=== PATIENT | female | born 1995 | race Caucasian/White ===

== ENCOUNTER 2017-05-10 07:14 | Emergency (ER) | payer OTHER ==
[2017-05-10 07:19] VITALS: TEMP 98.8; BMI 25.8
[2017-05-10 08:02] LABS: URINE APPEARANCE CLOUDY; URINE BILIRUBIN NEGATIVE (NEGATIVE); URINE BLOOD NEGATIVE (NEGATIVE); URINE COLOR YELLOW; URINE GLUCOSE (UA) NEGATIVE (NEGATIVE); URINE KETONE NEGATIVE (NEGATIVE); URINE LEUK ESTERASE NEGATIVE (NEGATIVE); URINE NITRITE NEGATIVE (NEGATIVE); URINE PROTEIN NEGATIVE (NEGATIVE); URINE UROBILINOGEN NEGATIVE mg/dL (0.2-1.0)
--- NOTE | 2017-05-10 08:04 | PDOC ---
History of Present Illness - General History Source: Patient Exam Limitations: No Limitations - History of Present Illness Initial Comments: 05/10/17 08:34 The patient is a 22 year old female with a significant PMH of polysubstance abuse (clean for 1 year) and ovarian cysts who presents to the emergency department with abdominal pain beginning approximately yesterday night. The patient describes the abdominal pain as localized in the RLQ with no radiation. Patient reports laying down in her bed yesterday when the pain started, which got worse by the time she woke up. She notes associated nausea with her abdominal pain and reports a reduced appetite for the past week. Patient reports still having her appendix. The patient denies chest pain, shortness of breath, headache and dizziness. Denies fever, chills, nausea, vomit, diarrhea and constipation. Denies dysuria, frequency, urgency and hematuria. Allergies: NKDA Past surgical history: Tonsillectomy. Social history: Everyday smoker. Hx of polysubstance abuse (clean for 1 year). PCP: Dr. Bond <Lance Waldrop - Last Filed: 05/10/17 09:43> <Ava Jennings - Last Filed: 05/12/17 07:46> - General Chief Complaint: Pain Stated Complaint: ABD PAIN Time Seen by Provider: 05/10/17 07:41 Past History <Lance Waldrop - Last Filed: 05/10/17 09:43> - Past Medical History Other medical history: DENIES - Immunization History Immunization Up to Date: No - Suicide/Smoking/Psychosocial Hx Smoking History: Current every day smoker Have you smoked in the past 12 months: Yes Number of Cigarettes Smoked Daily: 20 Information on smoking cessation initiated: Yes 'Breaking Loose' booklet given: 05/10/17 Hx Alcohol Use: No Drug/Substance Use Hx: No Substance Use Type: None <Ava Jennings - Last Filed: 05/12/17 07:46> - Past Medical History Allergies/Adverse Reactions: Allergies Allergy/AdvReac Type Severity Reaction Status Date / Time No Known Allergies Allergy Verified 05/10/17 07:19 Home Medications: Ambulatory Orders Buprenorphine HCl/Naloxone HCl [Suboxone 4 mg-1 mg Sl Film] 1.5 each SL BID Citalopram Hydrobromide [Celexa -] 20 mg PO DAILY 05/10/17 Ondansetron [Zofran Odt -] 4 mg SL BID #14 od.tablet 05/10/17 Review of Systems - Review of Systems Able to Perform ROS?: Yes Comments:: 05/10/17 08:34 GENERAL/CONSTITUTIONAL: No fever or chills. No weakness. HEAD, EYES, EARS, NOSE AND THROAT: No change in vision. No ear pain or discharge. No sore throat. CARDIOVASCULAR: No chest pain or shortness of breath. RESPIRATORY: No cough, wheezing, or hemoptysis. GASTROINTESTINAL: (+) RLQ abdominal pain. (+) Nausea. No vomiting, diarrhea or constipation. GENITOURINARY: No dysuria, frequency, or change in urination. MUSCULOSKELETAL: No joint or muscle swelling or pain. No neck or back pain. SKIN: No rash NEUROLOGIC: No headache, vertigo, loss of consciousness, or change in strength/ sensation. ENDOCRINE: No increased thirst. No abnormal weight change. HEMATOLOGIC/LYMPHATIC: No anemia, easy bleeding, or history of blood clots. ALLERGIC/IMMUNOLOGIC: No hives or skin allergy. <Lance Waldrop - Last Filed: 05/10/17 09:43> *Physical Exam - Vital Signs Last Vital Signs Temp Pulse Resp BP Pulse Ox 98.8 F 84 18 136/76 100 05/10/17 07:16 05/10/17 07:16 05/10/17 07:16 05/10/17 07:16 05/10/17 07:16 - Physical Exam Comments: 05/10/17 09:43 GENERAL: (+) Appears uncomfortable. Awake, alert, and fully oriented. HEAD: No signs of trauma EYES: PERRLA, EOMI, sclera anicteric, conjunctiva clear ENT: Auricles normal inspection, hearing grossly normal, nares patent, oropharynx clear without exudates. Moist mucosa NECK: Normal ROM, supple, no lymphadenopathy, JVD, or masses LUNGS: Breath sounds equal, clear to auscultation bilaterally. No wheezes, and no crackles HEART: Regular rate and rhythm, normal S1 and S2, no murmurs, rubs or gallops ABDOMEN: (+) RLQ tenderness to palpation with guarding. Soft, normoactive bowel sounds. No rebound. No masses EXTREMITIES: Normal range of motion, no edema. No clubbing or cyanosis. No cords, erythema, or tenderness NEUROLOGICAL: Cranial nerves II through XII grossly intact. Normal speech, normal gait SKIN: Warm, Dry, normal turgor, no rashes or lesions noted. <Lance Waldrop - Last Filed: 05/10/17 09:43> - Vital Signs Last Vital Signs Temp Pulse Resp BP Pulse Ox 98.8 F 84 18 136/76 100 05/10/17 07:16 05/10/17 07:16 05/10/17 07:16 05/10/17 07:16 05/10/17 07:16 <Ava Jennings - Last Filed: 05/12/17 07:46> ED Treatment Course - LABORATORY CBC & Chemistry Diagram: 05/10/17 09:25 05/10/17 09:25 - ADDITIONAL ORDERS Additional order review: Laboratory Results 05/10/17 07:51 Urine Color Yellow Urine Appearance Cloudy Urine pH 6.0 Urine Protein Negative Urine Glucose (UA) Negative Urine Ketones Negative Urine Blood Negative Urine Nitrite Negative Urine Bilirubin Negative Urine Urobilinogen Negative Urine HCG, Qual Negative <Lance Waldrop - Last Filed: 05/10/17 09:43> - LABORATORY CBC & Chemistry Diagram: 05/10/17 09:25 05/10/17 09:25 <Ava Jennings - Last Filed: 05/12/17 07:46> Medical Decision Making - Medical Decision Making 05/10/17 10:[address] Yan at shift change. Awaiting labs, then will obtain CT a/ p to r/o appendicitis. <Ava Jennings - Last Filed: 05/12/17 07:46> *DC/Admit/Observation/Transfer - Attestations Scribe Attestion: 05/10/17 09:43 Documentation prepared by Lance Waldrop, acting as certified medical records coder for Ava Jennings MD. <Lance Waldrop - Last Filed: 05/10/17 09:43> <Ava Jennings - Last Filed: 05/12/17 07:46> Diagnosis at time of Disposition: Abdominal pain - Discharge Dispostion Disposition: HOME Condition at time of disposition: Stable - Prescriptions Prescriptions: Ondansetron [Zofran Odt -] 4 mg SL BID #14 od.tablet - Referrals Referrals: Geetha Navarro MD [Primary Care Provider] - - Patient Instructions Printed Discharge Instructions: DI for Abdominal Pain-Adult
[2017-05-10] MEDS ORDERED: SODIUM CHLORIDE 1,000 ML IV STA (09:08)
[2017-05-10] MEDS ORDERED: ACETAMINOPHEN 1000 MG/100 ML VIAL (NON FORMULARY) IVPB ONE (09:08)
[2017-05-10] MEDS ORDERED: ONDANSETRON 4 MG/2 ML VIAL IVPUSH ONE (09:08)
[2017-05-10] MEDS ORDERED: ONDANSETRON 4 MG/2 ML VIAL ONE ×2 (09:30→16:32)
[2017-05-10] MEDS ORDERED: ACETAMINOPHEN INJECTION 100 ML IVPB ONE (09:30)
[2017-05-10 09:40] LABS: BASOPHIL 0.2 % (0-2.0); EOSINOPHIL 1.3 % (0-4.5); MCH 30.1 pg (25.7-33.7); MCHC 33.4 g/dl (32.0-36.0); MEAN CELL VOLUME 90.1 fl (80-96); MEAN PLT VOLUME 10.1 fl (7.5-11.1); NEUTROPHILS 81.7 % (42.8-82.8); PLATELET COUNT 171 K/MM3 (134-434); RDW 12.9 % (11.6-15.6)
[2017-05-10 09:50] LABS: INR 1.02 (0.82-1.09); PROTHROMBIN TIME (PATIENT) 11.2 SEC (9.98-11.88)
[2017-05-10 10:32] LABS: ALBUMIN 3.5 g/dl (3.4-5.0); ANION GAP 7 (8-16); CALCIUM 8.9 mg/dL (8.5-10.1); CO2 28 mmol/L (21-32); GLUCOSE,RANDOM 93 mg/dL (74-106)
[2017-05-10 10:36] LABS: ALK PHOS 53 U/L (45-117); BILIRUBIN,TOTAL 0.4 mg/dL (0.2-1.0); CREATININE 0.7 mg/dL (0.55-1.02); SGOT/AST 73 U/L (15-37); SGPT/ALT 72 U/L (12-78); TOT PROT 6.8 g/dl (6.4-8.2)
[2017-05-10] MEDS ORDERED: morphine CARPU-JECT 4 MG/1 ML DISP.SYRIN IVPUSH ONE (11:23)
[2017-05-10] MEDS ORDERED: morphine CARPU-JECT 2 MG/1 ML DISP.SYRIN ONE (11:48)
--- NOTE | 2017-05-10 14:27 | PDOC ---
*Physical Exam - Vital Signs Last Vital Signs Temp Pulse Resp BP Pulse Ox 98.8 F 84 18 136/76 100 05/10/17 07:16 05/10/17 07:16 05/10/17 07:16 05/10/17 07:16 05/10/17 07:16 ED Treatment Course - LABORATORY CBC & Chemistry Diagram: 05/10/17 09:25 05/10/17 09:25 - ADDITIONAL ORDERS Additional order review: Laboratory Results 05/10/17 05/10/17 05/10/17 09:27 09:25 09:25 PT with INR 11.20 INR 1.02 Sodium 140 Potassium 4.4 Chloride 105 Carbon Dioxide 28 Anion Gap 7 L BUN 9 D Creatinine 0.7 D Creat Clearance w eGFR > 60 Random Glucose 93 Calcium 8.9 Total Bilirubin 0.4 D AST 73 H D ALT 72 D Alkaline Phosphatase 53 Total Protein 6.8 Albumin 3.5 Lipase 103 Urine Color Urine Appearance Urine pH Urine Protein Urine Glucose (UA) Urine Ketones Urine Blood Urine Nitrite Urine Bilirubin Urine Urobilinogen Urine HCG, Qual Blood Type A POSITIVE Antibody Screen Negative 05/10/17 07:51 PT with INR INR Sodium Potassium Chloride Carbon Dioxide Anion Gap BUN Creatinine Creat Clearance w eGFR Random Glucose Calcium Total Bilirubin AST ALT Alkaline Phosphatase Total Protein Albumin Lipase Urine Color Yellow Urine Appearance Cloudy Urine pH 6.0 Urine Protein Negative Urine Glucose (UA) Negative Urine Ketones Negative Urine Blood Negative Urine Nitrite Negative Urine Bilirubin Negative Urine Urobilinogen Negative Urine HCG, Qual Negative Blood Type Antibody Screen 05/10/17 09:25 RBC 4.34 MCV 90.1 MCHC 33.4 RDW 12.9 MPV 10.1 Neutrophils % 81.7 Lymphocytes % 11.4 Monocytes % 5.4 Eosinophils % 1.3 Basophils % 0.2 - RADIOLOGY Radiology Studies Ordered: Category Date Time Status ABDOMEN & PELVIS CT WITH CONTR [CT] Stat CT Scan 05/10/17 11:21 Ordered TRANSVAGINAL ULTRASOUND US [US] Stat Ultrasound 05/10/17 13:14 Ordered - Medications Given in the ED: ED Medications Discontinued Medications Generic Name Dose Route Start Last Admin Trade Name Freq PRN Reason Stop Dose Admin Acetaminophen 1,000 mg 05/10/17 09:08 05/10/17 09:38 Ofirmev Injection - IVPB 05/10/17 09:09 1,000 mg ONCE ONE Administration Sodium Chloride 1,000 mls @ 1,000 mls/hr 05/10/17 09:08 05/10/17 09:38 Normal Saline - IV 05/10/17 10:07 1,000 mls/hr ASDIR STA Administration Morphine Sulfate 2 mg 05/10/17 11:23 05/10/17 11:53 Morphine Injection - IVPUSH 05/10/17 11:24 2 mg ONCE ONE Administration Ondansetron HCl 4 mg 05/10/17 09:08 05/10/17 09:36 Zofran Injection IVPUSH 05/10/17 09:09 4 mg ONCE ONE Administration Medical Decision Making - Medical Decision Making 05/10/17 14:26 Patient signed out to me by Dr. Jennings. Briefly patient presents with periumbilical pain radiating to the right lower quadrant concerning for appendicitis. Repeat abdominal exam with mild periumbilical, RLQ and LLQ ttp, and no rebound, guarding or distention. Pt given morphine 2mg for pain control as IV tylenol only minimally helped. UA negative. Patient is still currently pending her CT abdomen and pelvis as well as her transvaginal ultrasound. *DC/Admit/Observation/Transfer Diagnosis at time of Disposition: Abdominal pain - Discharge Dispostion Disposition: HOME Condition at time of disposition: Stable - Prescriptions Prescriptions: Ondansetron [Zofran Odt -] 4 mg SL BID #14 od.tablet - Referrals Referrals: Geetha Navarro MD [Primary Care Provider] - - Patient Instructions Printed Discharge Instructions: DI for Abdominal Pain-Adult - Post Discharge Activity
[2017-05-10] MEDS ORDERED: ONDANSETRON 4 MG/2 ML VIAL IVPB ONE (16:13)
[2017-05-10] MEDS ORDERED: KETOROLAC TROMETHAMINE 30 MG/1 ML VIAL IVPUSH ONE (16:15)
[2017-05-10] MEDS ORDERED: KETOROLAC TROMETHAMINE 30 MG/1 ML VIAL ONE (16:32)
--- NOTE | 2017-05-10 16:43 | PDOC ---
*Physical Exam - Vital Signs Last Vital Signs Temp Pulse Resp BP Pulse Ox 98.8 F 84 18 136/76 100 05/10/17 07:16 05/10/17 07:16 05/10/17 07:16 05/10/17 07:16 05/10/17 07:16 - Physical Exam Comments: 05/10/17 16:41 Patient endorsed to me by Dr. Owens. Patient is a well-appearing 22-year-old female who presented with nonspecific lower abdominal pain. CBC shows leukocytosis of 14 with a normal differential. Urinalysis is within normal limit. CMP reveals minimally elevated AST. Transvaginal ultrasound showed no evidence of torsion, no evidence of ovarian cyst or any other abnormality was noted. CT of abdomen and pelvis was performed and showed no evidence of acute appendicitis or any other intra-abdominal pathology. On reevaluation, patient has minimal left lower quadrant tenderness only. Patient complaining of mild nausea but Patient is able tolerate by mouth. We'll administer Toradol and Zofran. Will discharge with NSAIDs and Zofran as an outpatient with PMD follow- up. ED Treatment Course - LABORATORY CBC & Chemistry Diagram: 05/10/17 09:25 05/10/17 09:25 - ADDITIONAL ORDERS Additional order review: Laboratory Results 05/10/17 05/10/17 05/10/17 09:27 09:25 09:25 PT with INR 11.20 INR 1.02 Sodium 140 Potassium 4.4 Chloride 105 Carbon Dioxide 28 Anion Gap 7 L BUN 9 D Creatinine 0.7 D Creat Clearance w eGFR > 60 Random Glucose 93 Calcium 8.9 Total Bilirubin 0.4 D AST 73 H D ALT 72 D Alkaline Phosphatase 53 Total Protein 6.8 Albumin 3.5 Lipase 103 Urine Color Urine Appearance Urine pH Urine Protein Urine Glucose (UA) Urine Ketones Urine Blood Urine Nitrite Urine Bilirubin Urine Urobilinogen Urine HCG, Qual Blood Type A POSITIVE Antibody Screen Negative 05/10/17 07:51 PT with INR INR Sodium Potassium Chloride Carbon Dioxide Anion Gap BUN Creatinine Creat Clearance w eGFR Random Glucose Calcium Total Bilirubin AST ALT Alkaline Phosphatase Total Protein Albumin Lipase Urine Color Yellow Urine Appearance Cloudy Urine pH 6.0 Urine Protein Negative Urine Glucose (UA) Negative Urine Ketones Negative Urine Blood Negative Urine Nitrite Negative Urine Bilirubin Negative Urine Urobilinogen Negative Urine HCG, Qual Negative Blood Type Antibody Screen 05/10/17 09:25 RBC 4.34 MCV 90.1 MCHC 33.4 RDW 12.9 MPV 10.1 Neutrophils % 81.7 Lymphocytes % 11.4 Monocytes % 5.4 Eosinophils % 1.3 Basophils % 0.2 - Medications Given in the ED: ED Medications Discontinued Medications Generic Name Dose Route Start Last Admin Trade Name Rupa PRN Reason Stop Dose Admin Acetaminophen 1,000 mg 05/10/17 09:08 05/10/17 09:38 Ofirmev Injection - IVPB 05/10/17 09:09 1,000 mg ONCE ONE Administration Sodium Chloride 1,000 mls @ 1,000 mls/hr 05/10/17 09:08 05/10/17 09:38 Normal Saline - IV 05/10/17 10:07 1,000 mls/hr ASDIR STA Administration Ketorolac Tromethamine 30 mg 05/10/17 16:15 05/10/17 16:38 Toradol Injection - IVPUSH 05/10/17 16:16 30 mg ONCE ONE Administration Morphine Sulfate 2 mg 05/10/17 11:23 05/10/17 11:53 Morphine Injection - IVPUSH 05/10/17 11:24 2 mg ONCE ONE Administration Ondansetron HCl 4 mg 05/10/17 09:08 05/10/17 09:36 Zofran Injection IVPUSH 05/10/17 09:09 4 mg ONCE ONE Administration Ondansetron HCl 8 mg 05/10/17 16:13 05/10/17 16:40 Zofran Injection IVPB 05/10/17 16:14 8 mg ONCE ONE Administration *DC/Admit/Observation/Transfer Diagnosis at time of Disposition: Abdominal pain Qualifiers: Abdominal location: left lower quadrant Qualified Code(s): R10.32 - Left lower quadrant pain - Discharge Dispostion Disposition: HOME Condition at time of disposition: Stable - Referrals Referrals: Geetha Navarro MD [Primary Care Provider] - - Patient Instructions Printed Discharge Instructions: DI for Abdominal Pain-Adult - Post Discharge Activity
[2017-05-10 17:02] VITALS: BP 126/70; PULSE 80
== END 2017-05-10 17:02 | disposition home or self-care (01) ==
LOC: JER 07:14
PROC: 3E033NZ Introduction of Analgesics, Hypnotics, Sedatives into Peripheral Vein, Percutaneous Approach (ICD-10-PCS; principal; 2017-05-10)
PROC: 3E033GC Introduction of Other Therapeutic Substance into Peripheral Vein, Percutaneous Approach (ICD-10-PCS; 2017-05-10)
PROC: 3E0333Z Introduction of Anti-inflammatory into Peripheral Vein, Percutaneous Approach (ICD-10-PCS; 2017-05-10)
PROC: 3E033GC Introduction of Other Therapeutic Substance into Peripheral Vein, Percutaneous Approach (ICD-10-PCS; 2017-05-10)
PROC: 3E033NZ Introduction of Analgesics, Hypnotics, Sedatives into Peripheral Vein, Percutaneous Approach (ICD-10-PCS; 2017-05-10)
DX: R10.32 Left lower quadrant pain (principal); F17.210 Nicotine dependence, cigarettes, uncomplicated
CPT/HCPCS: 36415; 74177-TC; 76830-TC; 80053; 81003; 83690; 84703; 85025; 85610; 86850; 86900; 86901; 87086; 99284-25

== ENCOUNTER 2018-01-02 05:27 | Emergency (ER) | payer OTHER ==
--- NOTE | 2018-01-02 05:57 | PDOC ---
History of Present Illness <Kari Yan - Last Filed: 01/02/18 06:27> - History of Present Illness Initial Comments: 01/02/18 06:26 Ms. Sultana is a 22 yo female w/ pmh of polysubstance abuse who presents via ambulance after friend called EMS as patient was no longer responsive. Her friend then administered IN Narcan. Ms. Sultana was responsive on arrival to the ER and admits to using approximately 15 bags of heroin last night. She reports she had been clean until recently but has started using again. She is not interested in detox at this time. The patient denies chest pain, shortness of breath, headache and dizziness. Denies fever, chills, nausea, vomit, diarrhea and constipation. Denies dysuria, frequency, urgency and hematuria. Allergies: NKDA <Thomas Prais - Last Filed: 01/02/18 06:56> - General Chief Complaint: Overdose Stated Complaint: OVERDOSE Time Seen by Provider: 01/02/18 05:56 Past History <Kari Yan - Last Filed: 01/02/18 06:27> - Immunization History Immunization Up to Date: No - Suicide/Smoking/Psychosocial Hx Smoking History: Current every day smoker Have you smoked in the past 12 months: Yes Number of Cigarettes Smoked Daily: 20 'Breaking Loose' booklet given: 05/10/17 Hx Alcohol Use: No Drug/Substance Use Hx: No Substance Use Type: None <Thomas Paris - Last Filed: 01/02/18 06:56> - Past Medical History Allergies/Adverse Reactions: Allergies Allergy/AdvReac Type Severity Reaction Status Date / Time No Known Allergies Allergy Verified 01/02/18 06:12 Home Medications: Ambulatory Orders Buprenorphine HCl/Naloxone HCl [Suboxone 4 mg-1 mg Sl Film] 1.5 each SL BID Citalopram Hydrobromide [Celexa -] 20 mg PO DAILY 05/10/17 Ondansetron [Zofran Odt -] 4 mg SL BID #14 od.tablet 05/10/17 Review of Systems - Review of Systems Comments:: 01/02/18 06:32 GENERAL/CONSTITUTIONAL: No fever or chills. No weakness. HEAD, EYES, EARS, NOSE AND THROAT: No change in vision. No ear pain or discharge. No sore throat. CARDIOVASCULAR: No chest pain or shortness of breath RESPIRATORY: No cough, wheezing, or hemoptysis. GASTROINTESTINAL: No nausea, vomiting, diarrhea or constipation. GENITOURINARY: No dysuria, frequency, or change in urination. MUSCULOSKELETAL: No joint or muscle swelling or pain. No neck or back pain. SKIN: No rash NEUROLOGIC: No headache, vertigo, loss of consciousness, or change in strength/ sensation. ENDOCRINE: No increased thirst. No abnormal weight change HEMATOLOGIC/LYMPHATIC: No anemia, easy bleeding, or history of blood clots. ALLERGIC/IMMUNOLOGIC: No hives or skin allergy. <Thomas Paris - Last Filed: 01/02/18 06:56> *Physical Exam - Vital Signs Last Vital Signs Temp Pulse Resp BP Pulse Ox 98.2 F 106 H 19 116/71 100 01/02/18 05:55 01/02/18 05:55 01/02/18 05:55 01/02/18 05:55 01/02/18 05:55 <Kari Yan - Last Filed: 01/02/18 06:27> - Physical Exam Comments: 01/02/18 06:32 GENERAL: Awake, alert, and fully oriented, in no acute distress HEAD: No signs of trauma, normocephalic, atraumatic EYES: PERRLA, EOMI, sclera anicteric, conjunctiva clear ENT: Auricles normal inspection, hearing grossly normal, nares patent, oropharynx clear without exudates. Moist mucosa NECK: Normal ROM, supple, no lymphadenopathy, JVD, or masses LUNGS: No distress, speaks full sentences, clear to auscultation bilaterally HEART: Regular rate and rhythm, normal S1 and S2, no murmurs, rubs or gallops, peripheral pulses normal and equal bilaterally. ABDOMEN: Soft, nontender, normoactive bowel sounds. No guarding, no rebound. No masses EXTREMITIES: Normal inspection, Normal range of motion, no edema. No clubbing or cyanosis. NEUROLOGICAL: Cranial nerves II through XII grossly intact. Normal speech, normal gait, no focal sensorimotor deficits SKIN: Warm, Dry, normal turgor, no rashes or lesions noted. <Thomas Paris - Last Filed: 05/22/18 06:56> Moderate Sedation - Procedure Monitoring Vital Signs: Vital Signs Temp Pulse Resp BP Pulse Ox 98.2 F 106 H 19 116/71 100 01/02/18 05:55 01/02/18 05:55 01/02/18 05:55 01/02/18 05:55 01/02/18 05:55 <Kari Yan - Last Filed: 01/02/18 06:27> Medical Decision Making - Medical Decision Making 01/02/18 06:32 Ms. Sultana is a 22 yo female who presents to ER with acute heroin intoxication / narcan rescue. Patient currently alert and responsive. No focal findings at this time. Will observe in ER for relapse. 01/02/18 06:56 Patient signed out to Dr. Adam for further evaluation. <Thomas Paris - Last Filed: 01/02/18 06:56> *DC/Admit/Observation/Transfer <Kari Yan - Last Filed: 01/02/18 06:27> <Thomas Paris - Last Filed: 01/02/18 06:56> Diagnosis at time of Disposition: Accidental heroin overdose - Discharge Dispostion Condition at time of disposition: Guarded - Referrals Referrals: ON STAFF,NOT [Primary Care Provider] - - Patient Instructions - Post Discharge Activity
[2018-01-02 06:11] VITALS: TEMP 98.2; BMI 25.8
--- NOTE | 2018-01-02 06:24 | PDOC ---
Attending Attestation - Resident Resident Name: Thomas Paris - ED Attending Attestation I have performed the following: I have examined & evaluated the patient, The case was reviewed & discussed with the resident, I agree w/resident's findings & plan, Exceptions are as noted - HPI HPI: 01/02/18 06:13 22-year-old female with a history of heroin abuse presents emergency Department after heroin overdose. Per EMS, the patient was snorting heroin with a friend when the friend noted that she began to breathe heavily and her respiratory rate slowed down. The patient's friend also reports that the patient turned blue and thus she decided to give her intranasal Narcan and the patient became more alert within 10-15 seconds. EMS was called and transported the patient here to the emergency department. Patient currently tearful and upset that she has relapsed again. Pt states she used 15 bags of heroin overnight, but used 5 bags in rapid succession which she usually doesn't do just prior to overdose. Denies any fevers, chills, chest pain, shortness of breath, abdominal pain, nausea, vomiting, diarrhea, lower extremity edema. Denies other drug use. Declines HIV test. - Physicial Exam PE: 01/02/18 06:16 GENERAL: Awake, alert, and fully oriented, in no acute distress HEAD: No signs of trauma EYES: PERRLA, EOMI, sclera anicteric, conjunctiva clear ENT: Auricles normal inspection, hearing grossly normal, nares patent, oropharynx clear without exudates. Moist mucosa NECK: Normal ROM, supple, no lymphadenopathy, JVD, or masses LUNGS: Breath sounds equal, clear to auscultation bilaterally. No wheezes, and no crackles. RR 14 HEART: Tachy but regular, normal S1 and S2, no murmurs, rubs or gallops ABDOMEN: Soft, nontender, normoactive bowel sounds. No guarding, no rebound. No masses EXTREMITIES: Normal range of motion, no edema. No clubbing or cyanosis. No cords, erythema, or tenderness NEUROLOGICAL: Normal speech, cranial nerves intact, negative pronator drift, 5/ 5 strength in all 4 extremities, normal sensation to light touch in all 4 extremities, normal cerebellar exam, normal gait, normal reflexes and tone SKIN: Warm, Dry, normal turgor, no rashes or lesions noted. - Medical Decision Making 01/02/18 06:27 22-year-old female presents to the emergency Department with a heroin overdose status post Narcan. Pt used 15 bags total last night, but used the last 5 bags in close succession which she has never done before. At this time her RR is 12- 16, mildly tachycardic at 106. Given half-life of Narcan is shorter than heroin , will observe the patient on monitor for respiratory depression and reassess. 01/02/18 06:51 RR remains btwn 11-16 while monitored, pt awake and texting on phone. 01/02/18 07:00 Pt signed out to Dr. Delong for further management and dispo.
--- NOTE | 2018-01-02 07:26 | PDOC ---
*Physical Exam - Vital Signs Last Vital Signs Temp Pulse Resp BP Pulse Ox 98.2 F 106 H 19 116/71 100 01/02/18 05:55 01/02/18 05:55 01/02/18 05:55 01/02/18 05:55 01/02/18 05:55 - Physical Exam Comments: 01/02/18 07:26 GENERAL: Awake, alert, and fully oriented, in no acute distress HEAD: No signs of trauma, normocephalic, atraumatic EYES: PERRLA, EOMI, sclera anicteric, conjunctiva clear ENT: Hearing grossly normal, nares patent, oropharynx clear without exudates. Moist mucosa NECK: Normal ROM, supple, no lymphadenopathy, JVD, or masses LUNGS: No distress, speaks full sentences, clear to auscultation bilaterally HEART: Regular rate and rhythm, normal S1 and S2, no murmurs, rubs or gallops, peripheral pulses normal and equal bilaterally. ABDOMEN: Soft, nontender, normoactive bowel sounds. No guarding, no rebound. No masses EXTREMITIES : Normal inspection, Normal range of motion, no edema. No clubbing or cyanosis. NEUROLOGICAL: Cranial nerves II through XII grossly intact. Normal speech, normal gait, no focal sensorimotor deficits SKIN: Warm, Dry, normal turgor, no rashes or lesions noted Medical Decision Making - Medical Decision Making 01/02/18 07:23 22 yo F with h/o of polysubstance abuse BIBA after found unrepsonsive, and received IM Narcan for suspected Heroin OD. Responsive in ED and admits to using approximately 15 bags of heroin last night. Received signout from Dr. Paris. Patient respiratory rate dropped to 9 in ED. Will continue to monitor respiratory status. ED Course: 01/02/18 09:23 Patient resp rate stable . Patient seen ambulating rojo without difficulty. Stable for d/c with return precautions. Advised to f/u with PMD. *DC/Admit/Observation/Transfer Diagnosis at time of Disposition: Accidental heroin overdose Qualifiers: Encounter type: initial encounter Qualified Code(s): T40.1X1A - Poisoning by heroin, accidental (unintentional), initial encounter - Discharge Dispostion Condition at time of disposition: Guarded - Referrals Referrals: ON STAFF,NOT [Primary Care Provider] - - Patient Instructions Printed Discharge Instructions: DI for Drug Overdose in Adults Additional Instructions: Please return to the emergency department with any new or worsening symptoms or concerns. Please follow up with your primary care physician within 72 hours. - Post Discharge Activity - Attestations Physician Attestion: 01/02/18 08:38 I attest to the information provided in this note.
[2018-01-02 09:42] VITALS: BP 122/88; PULSE 91
== END 2018-01-02 09:42 | disposition home or self-care (01) ==
LOC: SUPCPDRO 05:27 → JER 05:27
DX: T40.0X1A Poisoning by opium, accidental (unintentional), initial encounter (principal); T40.1X1A Poisoning by heroin, accidental (unintentional), initial encounter; Y92.018 Other place in single-family (private) house as the place of occurrence of the external cause
CPT/HCPCS: 99282-25

== ENCOUNTER 2018-05-13 00:52 | Emergency (ER) | payer OTHER ==
[2018-05-13 00:56] VITALS: BP 119/74; PULSE 107; TEMP 98.3; BMI 25.8
--- NOTE | 2018-05-13 01:39 | PDOC ---
History of Present Illness - General Chief Complaint: Head/Neck problem Stated Complaint: HEAD INJURY Time Seen by Provider: 05/13/18 01:15 History Source: Patient Exam Limitations: No Limitations - History of Present Illness Initial Comments: 05/13/18 03:13 Best Contact: PCP: Beth/Manish Pmhx:0 Pshx: Age 5/adenoidectomy Allergies: NKDA FH:- Social Hx: Cigarettes/ 1 pk/d/5 years Alcohol/ social Drugs/ IVDA; heroin 23-year-old female presents to the emergency department with her boyfriend after a near syncopal episode shortly after using IVDA heroin this evening. Patient states she was not eating off from taking her 2 bags of her when, she remember striking her head against the wall. Patient denies headache, dizziness , lightheadedness. Patient states whenever she takes heroin, she starts nodding off but denied it was a medical syncope. Patient denies fever, chills, nausea/ vomiting, neck pains, back pains, chest pain, shortness of breath, abdominal pains, flank pains, bladder or bowel dysfunction, urinary symptoms, Vikas numbness or tingling sensation. Patient states she has no complaints since arrival to the emergency department. Past History - Past Medical History Allergies/Adverse Reactions: Allergies Allergy/AdvReac Type Severity Reaction Status Date / Time No Known Allergies Allergy Verified 05/13/18 00:56 Home Medications: Ambulatory Orders Sertraline HCl [Zoloft -] 50 mg PO DAILY 05/13/18 COPD: No - Immunization History Immunization Up to Date: No - Suicide/Smoking/Psychosocial Hx Smoking History: Current every day smoker Have you smoked in the past 12 months: Yes Number of Cigarettes Smoked Daily: 20 Information on smoking cessation initiated: Yes 'Breaking Loose' booklet given: 05/10/17 Hx Alcohol Use: No Drug/Substance Use Hx: Yes Substance Use Type: None Review of Systems - Review of Systems Able to Perform ROS?: Yes Comments:: 05/13/18 03:19 CONSTITUTIONAL: Absent: fever, chills, diaphoresis, generalized weakness, malaise, loss of appetite HEENT: Absent: rhinorrhea, nasal congestion, throat pain, throat swelling, difficulty swallowing, mouth swelling, ear pain, eye pain, visual Changes CARDIOVASCULAR: Absent: chest pain, loss of consciousness, palpitations, irregular heart rate, peripheral edema RESPIRATORY: Absent: cough, shortness of breath, dyspnea with exertion, orthopnea, wheezing, stridor, hemoptysis GASTROINTESTINAL: Absent: abdominal pain, abdominal distension, nausea, vomiting, diarrhea, constipation, melena, hematochezia GENITOURINARY: Absent: dysuria, frequency, urgency, hesitancy, hematuria, flank pain, genital pain MUSCULOSKELETAL: Absent: myalgia, arthralgia, joint swelling SKIN: Absent: rash, itching, pallor HEMATOLOGIC/IMMUNOLOGIC: Absent: easy bleeding, easy bruising, lymphadenopathy, frequent infections ENDOCRINE: Absent: unexplained weight gain, unexplained weight loss, heat intolerance, cold intolerance NEUROLOGIC: "No headache but I hit my head on the wall" Absent: headache, focal weakness or paresthesias, dizziness, unsteady gait, seizure, mental status changes, bladder or bowel incontinence PSYCHIATRIC: Absent: anxiety, depression, suicidal or homicidal ideation, hallucinations. Is the patient limited [place] proficient: No *Physical Exam - Vital Signs Last Vital Signs Temp Pulse Resp BP Pulse Ox 98.3 F 107 H 18 119/74 99 05/13/18 00:53 05/13/18 00:53 05/13/18 00:53 05/13/18 00:53 05/13/18 00:53 - Physical Exam Comments: 05/13/18 03:20 GENERAL: Well developed, well nourished. Awake and alert. No acute distress. HEENT: Normocephalic, atraumatic. PERRLA, EOMI. No conjunctival pallor. Sclera are non- icteric. Moist mucous membranes. Oropharynx is clear. NECK: Supple. Full ROM. No JVD. Carotid pulses 2+ and symmetric, without bruits. No thyromegaly. No lymphadenopathy. CARDIOVASCULAR: Regular rate and rhythm. No murmurs, rubs, or gallops. Distal pulses are 2+ and symmetric. PULMONARY: No evidence of respiratory distress. Lungs clear to auscultation bilaterally. No wheezing, rales or rhonchi. ABDOMINAL: Soft. Non-tender. Non-distended. No rebound or guarding. No organomegaly. Normoactive bowel sounds. MUSCULOSKELETAL Normal range of motion at all joints. No bony deformities or tenderness. No CVA tenderness. EXTREMITIES: No cyanosis. No clubbing. No edema. No calf tenderness. SKIN: Warm and dry. Normal capillary refill. No rashes. No jaundice. NEUROLOGICAL: Alert, awake, appropriate. Cranial nerves 2-12 intact. No deficits to light touch and temperature in face, upper extremities and lower extremities. No motor deficits in the in face, upper extremities and lower extremities. Normoreflexic in the upper and lower extremities. Normal speech. Toes are down- going bilaterally. Gait is normal without ataxia. PSYCHIATRIC: Cooperative. Good eye contact. Appropriate mood and affect. ED Treatment Course - RADIOLOGY Radiograph Interpretation: 05/13/18 03:22 CT head w/o contrast=neg CT c spine=neg *DC/Admit/Observation/Transfer Diagnosis at time of Disposition: Heroin dependence Closed head injury Qualifiers: Encounter type: initial encounter Qualified Code(s): S09.90XA - Unspecified injury of head, initial encounter - Discharge Dispostion Disposition: HOME Condition at time of disposition: Stable Decision to Admit order: No - Referrals Referrals: Geetha Navarro MD [Primary Care Provider] - - Patient Instructions Printed Discharge Instructions: DI for Closed Head Injury Additional Instructions: You had a CAT scan of your head and neck this evening which shows no bleed to the head and no fracture to the neck. Avoid recreational drugs Follow-up with your physician or the one listed on your discharge Return back to the emergency department severe headache, dizziness, lightheadedness or any concerns - Post Discharge Activity
== END 2018-05-13 03:25 | disposition home or self-care (01) ==
LOC: JER 00:52
DX: F11.20 Opioid dependence, uncomplicated (principal); S09.90XA Unspecified injury of head, initial encounter
CPT/HCPCS: 70450-TC; 72125-TC; 84703; 99282-25

== ENCOUNTER 2018-07-20 22:30 | Inpatient (IN) | payer OTHER ==
--- NOTE | 2018-07-20 23:45 | PDOC ---
History of Present Illness <Chris Polanco - Last Filed: 07/21/18 01:59> - General History Source: Patient Exam Limitations: No Limitations - History of Present Illness Initial Comments: 07/21/18 00:07 The patient is a 23-year-old female past medical history significant for heroin abuse presents to the emergency department with redness to the right arm. The patient presents with 1 day of progressively worsening redness to the right arm , s/p IV drug use. The patient reports she noticed swelling to the arm last night, thats been worsening. The patient reports her last drug use was earlier today. Denies licking the needle prior to injection. Denies armpit pain, SOB, chest pain, abdominal pain, fever, chills. Denies prior similar pain. The patient reports she was clean for a year, and recently Relapsed. LMP: 3 months ago, baseline irregular. Allergies: NKDA Social history: Tobacco use reported. Heroin use reported. Surgical history: Tonsillectomy. PCP: Dr. Navarro. <Maru Fowler - Last Filed: 07/21/18 02:14> - General Chief Complaint: Redness To Affected Area Stated Complaint: RT SWOLLEN ARM Time Seen by Provider: 07/20/18 23:24 Past History - Past Medical History COPD: No - Immunization History Immunization Up to Date: No - Suicide/Smoking/Psychosocial Hx Smoking History: Current every day smoker Have you smoked in the past 12 months: Yes Number of Cigarettes Smoked Daily: 20 Information on smoking cessation initiated: No 'Breaking Loose' booklet given: 05/10/17 Hx Alcohol Use: No Drug/Substance Use Hx: Yes (HEROIN) Substance Use Type: None <Chris Polanco - Last Filed: 07/21/18 01:59> <Maru Fowler - Last Filed: 07/21/18 02:14> - Past Medical History Allergies/Adverse Reactions: Allergies Allergy/AdvReac Type Severity Reaction Status Date / Time No Known Allergies Allergy Verified 07/20/18 23:16 Home Medications: Ambulatory Orders Sertraline HCl [Zoloft -] 50 mg PO DAILY 05/13/18 Review of Systems - Review of Systems Able to Perform ROS?: Yes Comments:: 07/21/18 00:14 CONSTITUTIONAL: No fever, no chills, no fatigue EYES: No visual changes ENT: No ear pain, no sore throat CARDIOVASCULAR: No chest pain, no palpitations RESPIRATORY: No cough, no SOB GI: No abdominal pain, no nausea, no vomiting, no constipation, no diarrhea GENITOURINARY: No dysuria, no frequency, no hematuria MUSKULOSKELETAL: No backpain, no joint pain, no myalgias SKIN: +redness to the right arm. No rash NEURO: No headache. <Maru Fowler - Last Filed: 07/21/18 02:14> *Physical Exam - Vital Signs Last Vital Signs Temp Pulse Resp BP Pulse Ox 102 F H 120 H 20 101/60 96 07/20/18 23:16 07/20/18 23:16 07/20/18 23:16 07/20/18 23:16 07/20/18 23:16 <Chris Polanco - Last Filed: 07/21/18 01:59> - Vital Signs Last Vital Signs Temp Pulse Resp BP Pulse Ox 102 F H 120 H 20 101/60 96 07/20/18 23:16 07/20/18 23:16 07/20/18 23:16 07/20/18 23:16 07/20/18 23:16 - Physical Exam Comments: 07/21/18 01:21 CONSTITUTIONAL: +Febril. Well-appearing; well-nourished; in no apparent distress HEAD: Normocephalic; atraumatic EYES: PERRL; EOM intact ENMT: External appears normal; normal oropharynx NECK: Supple; non-tender; no cervical lymphadenopathy CARD: +Tachycardia. Normal S1, S2; no murmurs, rubs, or gallops RESP: Normal chest excursion with respiration; breath sounds clear and equal bilaterally; no wheezes, rhonchi, or rales ABD: Soft, non-distended; non-tender; no palpable organomegaly, no palpable hernias EXT: Normal ROM in all four extremities; non-tender to palpation; distal pulses intact SKIN: +6 cm well demarcated lesion to the dorsum of the right forearm, with several puncture terrell. Warm, dry, no rash NEURO: No focal neurological deficiencies. <Maru Fowler - Last Filed: 07/21/18 02:14> Moderate Sedation - Procedure Monitoring Vital Signs: Procedure Monitoring Vital Signs Temperature 102 F H 12/07/18 23:16 Pulse Rate 120 H 07/20/18 23:16 Respiratory Rate 20 07/20/18 23:16 Blood Pressure 101/60 07/20/18 23:16 O2 Sat by Pulse Oximetry (%) 96 07/20/18 23:16 <Chris Polanco - Last Filed: 07/21/18 01:59> - Procedure Monitoring Vital Signs: Procedure Monitoring Vital Signs Temperature 102 F H 07/20/18 23:16 Pulse Rate 120 H 07/20/18 23:16 Respiratory Rate 20 07/20/18 23:16 Blood Pressure 101/60 07/20/18 23:16 O2 Sat by Pulse Oximetry (%) 96 07/20/18 23:16 <Maru Fowler - Last Filed: 07/21/18 02:14> ED Treatment Course - LABORATORY CBC & Chemistry Diagram: 07/21/18 01:30 07/21/18 01:30 <Maru Fowler - Last Filed: 07/21/18 02:14> Medical Decision Making - Medical Decision Making 07/21/18 01:59 Patient is a 23 -year-old female with history of active IVDA who presents with fever and right forearm cellulitis. Blood cultures been obtained. We'll administer IV Vanco. Will admit for IV antibiotics pending cultures. <Chris Polanco - Last Filed: 07/21/18 01:59> - Medical Decision Making 07/21/18 01:24 The EKG was read by Dr. Polanco on 07/21/2018 at 6:07. Vent. rate: 114 bpm GA Interval: 138 ms QRS duration: 82 ms QT/QTc: 326/449 ms P-R-T axes: 56 77 49 Sinus Tachycardia. 07/21/18 02:13 Lara Acostaprema (Mom): [phone] Temi Sultana (sister): [phone] <Maru Fowler - Last Filed: 07/21/18 02:14> *DC/Admit/Observation/Transfer - Attestations Physician Attestion: 07/21/18 01:59 The documentation was prepared by the scribe under my direct supervision. I have reviewed the documentation which correctly represents the findings, medical decision-making and critical action taken by me. <Chris Polanco - Last Filed: 07/21/18 01:59> - Attestations Scribe Attestion: 07/21/18 00:08 Documentation prepared by Maru Fowler, acting as emergency medical technician for Chris Polanco MD. <Maru Fowler - Last Filed: 07/21/18 02:14> - Referrals Referrals: Geetha Navarro MD [Primary Care Provider] - - Patient Instructions - Post Discharge Activity
[2018-07-20] MEDS ORDERED: VANCOMYCIN 1 GRAM (PRE-DOCKED) 1,000 MG/250 ML BAG IVPB ONE (23:54)
[2018-07-21] MEDS ORDERED: ACETAMINOPHEN 500 MG TABLET (FP) PO ONE ×2 (00:02→01:54)
[2018-07-21] MEDS ORDERED: VANCOMYCIN 1 GRAM (PRE-DOCKED) 1,000 MG/250 ML BAG IVPB ONE ×2 (01:45→14:00)
[2018-07-21] MEDS ORDERED: ACETAMINOPHEN 325 MG TABLET (FP) ONE (01:54)
[2018-07-21 01:55] LABS: VENOUS PC02 45.5 mmHg (38-52); VENOUS PH 7.4 (7.32-7.42); VENOUS PO2 54.9 mmHg (28-48)
[2018-07-21] MEDS ORDERED: SODIUM CHLORIDE 1,000 ML IV STA (02:00)
[2018-07-21 02:11] LABS: URINE APPEARANCE SLCLOUDY; URINE BILIRUBIN NEGATIVE (<2.0 mg/dL); URINE COLOR YELLOW; URINE GLUCOSE (UA) NEGATIVE (NEGATIVE); URINE KETONE NEGATIVE (NEGATIVE); URINE LEUK ESTERASE NEGATIVE (NEGATIVE); URINE NITRITE NEGATIVE (NEGATIVE); URINE PROTEIN NEGATIVE (NEGATIVE)
[2018-07-21 02:19] LABS: BASO % 0.2 % (0-2.0); EOS % 2.3 % (0-4.5); HEMATOCRIT 34.8 % (32.4-45.2); HEMOGLOBIN 12.1 GM/dL (10.7-15.3); LYMPH % 20.1 % (8-40); MCH 28.8 pg (25.7-33.7); MCHC 34.7 g/dl (32.0-36.0); MEAN CELL VOLUME 83.1 fl (80-96); MEAN PLT VOLUME 8.7 fl (7.5-11.1); MONO % 6.4 % (3.8-10.2); PLATELET COUNT 208 K/MM3 (134-434); RBC 4.19 M/mm3 (3.60-5.2); RDW 13.7 % (11.6-15.6); WHITE BLOOD COUNT 11.2 K/mm3 (4.0-10.0)
[2018-07-21 02:31] LABS: INR 1.2 (0.83-1.09); PROTHROMBIN TIME (PATIENT) 14.2 SEC (9.7-13.0)
[2018-07-21 02:34] LABS: ACTIVATED PTT 28.8 SECONDS (25.2-36.5)
[2018-07-21 02:42] LABS: ALBUMIN 3.5 g/dl (3.4-5.0); ALK PHOS 60 U/L (45-117); ANION GAP 9 MMOL/L (8-16); BILIRUBIN,TOTAL 0.4 mg/dL (0.2-1); BLOOD UREA NITROGEN 9 mg/dL (7-18); CALCIUM 8.5 mg/dL (8.5-10.1); CHLORIDE 101 mmol/L (98-107); CO2 27 mmol/L (21-32); CREATININE 0.6 mg/dL (0.55-1.3); GLUCOSE,RANDOM 97 mg/dL (74-106); POTASSIUM 3.9 mmol/L (3.5-5.1); SGOT/AST 14 U/L (15-37); SGPT/ALT 17 U/L (13-61); SODIUM 136 mmol/L (136-145); TOT PROT 7.2 g/dl (6.4-8.2)
[2018-07-21] MEDS ORDERED: KETOROLAC TROMETHAMINE 10 MG TABLET PO ONE (03:54)
--- NOTE | 2018-07-21 04:14 | HP ---
Admitting History and Physical - Primary Care Physician PCP: Geetha Navarro - Admission Chief Complaint: Right Forearm, swelling, erythema, pain History of Present Illness: This is a 23 y/o young woman PMHx of Heroin Abuse (IVDU). Who presents to the ED with increased pain, redness and swelling to her right forearm x 1 day after injecting Heroin. Patient reports using "clean needles" from [employer]. Patient reports using 3 bags of Heroin last night before coming to the ED for evaluation. Patient reports recent rehab- [facility]. Patient denies numbness or tingling to her right arm. Patient denies chills, cough, SOB, CP, palpitations, AP, N/V/D, constipation, dysuria. Patient denies any other polysubstance use. History Source: Patient Limitations to Obtaining History: No Limitations - Past Medical History ...LMP: 05/09/17 Psych: Yes: Addictions (Heroin), Depression - Past Surgical History Past Surgical History: Yes: Tonsillectomy - Smoking History Smoking history: Current every day smoker Have you smoked in the past 12 months: Yes Aproximately how many cigarettes per day: 20 - Alcohol/Substance Use Hx Alcohol Use: No History of Substance Use: reports: Heroin Date of Last Use: 07/20/18 (3 bags) - Social History Usual Living Arrangement: Yes: With Parent ADL: Independent History of Recent Travel: No Home Medications - Allergies Allergies/Adverse Reactions: Allergies Allergy/AdvReac Type Severity Reaction Status Date / Time No Known Allergies Allergy Verified 07/20/18 23:16 - Home Medications Home Medications: Ambulatory Orders Sertraline HCl [Zoloft -] 50 mg PO DAILY 05/13/18 Family Disease History - Family Disease History Family Disease History: Diabetes: Grandparent, Heart Disease: Grandparent Review of Systems - Review of Systems Constitutional: reports: Fever Eyes: reports: No Symptoms HENT: reports: No Symptoms Neck: reports: No Symptoms Cardiovascular: reports: No Symptoms Respiratory: reports: No Symptoms Gastrointestinal: reports: No Symptoms Genitourinary: reports: No Symptoms Breasts: reports: No Symptoms Reported Musculoskeletal: reports: Extremity Pain Integumentary: reports: Erythema Neurological: reports: No Symptoms Endocrine: reports: No Symptoms Hematology/Lymphatic: reports: No Symptoms Psychiatric: reports: No Symptoms Pain Intensity: 9 Physical Examination Vital Signs: Vital Signs Temperature 102 F H 07/20/18 23:16 Pulse Rate 120 H 07/20/18 23:16 Respiratory Rate 20 07/20/18 23:16 Blood Pressure 101/60 07/20/18 23:16 O2 Sat by Pulse Oximetry (%) 96 07/20/18 23:16 Constitutional: Yes: Mild Distress, Thin Eyes: Yes: Conjunctiva Clear, EOM Intact, PERRL (pupils dilated) HENT: Yes: WNL, Atraumatic, Normocephalic Neck: Yes: WNL, Supple, Trachea Midline Cardiovascular: Yes: Tachycardia, S1, S2 Respiratory: Yes: WNL, Regular, CTA Bilaterally Gastrointestinal: Yes: WNL, Normal Bowel Sounds, Soft ...Rectal Exam: Yes: Deferred Renal/: Yes: WNL Breast(s): Yes: WNL Musculoskeletal: Yes: Joint Swelling (right forearm) Extremities: Yes: Erythema (right forearm) Edema: Yes Edema: RUE: 1+ Peripheral Pulses WNL: Yes Integumentary: Yes: Erythema, Other ( 6cm erythematous lesion to the dorsum right forearm,TN, non-fluctuant) Wound/Incision: Yes: Reddened Neurological: Yes: WNL, Alert, Oriented, Cran Nerves II-XII Intact ...Motor Strength: LUE (5/5), LLE (5/5), RUE (4/5), RLE (5/5) Psychiatric: Yes: WNL, Alert, Oriented Labs: CBC, BMP 07/21/18 01:30 07/21/18 01:30 Laboratory Results - last 24 hr 07/21/18 07/21/18 07/21/18 00:25 01:25 01:30 WBC 11.2 H RBC 4.19 Hgb 12.1 Hct 34.8 MCV 83.1 MCH 28.8 MCHC 34.7 RDW 13.7 Plt Count 208 D MPV 8.7 D Absolute Neuts (auto) 7.9 Neutrophils % 71.0 Lymphocytes % 20.1 D Monocytes % 6.4 Eosinophils % 2.3 Basophils % 0.2 Nucleated RBC % 0 PT with INR INR PTT (Actin FS) VBG pH 7.40 POC VBG pCO2 45.5 POC VBG pO2 54.9 H Mixed VBG HCO3 27.6 H Sodium Potassium Chloride Carbon Dioxide Anion Gap BUN Creatinine Creat Clearance w eGFR Random Glucose Lactic Acid Calcium Total Bilirubin AST ALT Alkaline Phosphatase Total Protein Albumin Serum , Qual Urine Color Yellow Urine Appearance Slcloudy Urine pH 6.0 Ur Specific [place] 1.021 Urine Protein Negative Urine Glucose (UA) Negative Urine Ketones Negative Urine Blood Negative Urine Nitrite Negative Urine Bilirubin Negative Urine Urobilinogen 2.0 H Ur Leukocyte Esterase Negative 07/21/18 07/21/18 07/21/18 01:30 01:30 01:30 WBC RBC Hgb Hct MCV MCH MCHC RDW Plt Count MPV Absolute Neuts (auto) Neutrophils % Lymphocytes % Monocytes % Eosinophils % Basophils % Nucleated RBC % PT with INR 14.20 H INR 1.20 H PTT (Actin FS) 28.8 VBG pH POC VBG pCO2 POC VBG pO2 Mixed VBG HCO3 Sodium 136 Potassium 3.9 Chloride 101 Carbon Dioxide 27 Anion Gap 9 BUN 9 Creatinine 0.6 Creat Clearance w eGFR > 60 Random Glucose 97 Lactic Acid 1.3 Calcium 8.5 Total Bilirubin 0.4 AST 14 L ALT 17 Alkaline Phosphatase 60 Total Protein 7.2 Albumin 3.5 Serum , Qual Urine Color Urine Appearance Urine pH Ur Specific [place] Urine Protein Urine Glucose (UA) Urine Ketones Urine Blood Urine Nitrite Urine Bilirubin Urine Urobilinogen Ur Leukocyte Esterase 07/21/18 01:30 WBC RBC Hgb Hct MCV MCH MCHC RDW Plt Count MPV Absolute Neuts (auto) Neutrophils % Lymphocytes % Monocytes % Eosinophils % Basophils % Nucleated RBC % PT with INR INR PTT (Actin FS) VBG pH POC VBG pCO2 POC VBG pO2 Mixed VBG HCO3 Sodium Potassium Chloride Carbon Dioxide Anion Gap BUN Creatinine Creat Clearance w eGFR Random Glucose Lactic Acid Calcium Total Bilirubin AST ALT Alkaline Phosphatase Total Protein Albumin Serum , Qual Negative Urine Color Urine Appearance Urine pH Ur Specific [place] Urine Protein Urine Glucose (UA) Urine Ketones Urine Blood Urine Nitrite Urine Bilirubin Urine Urobilinogen Ur Leukocyte Esterase Intake & Output 07/18/18 07/19/18 07/20/18 07/21/18 23:59 23:59 23:59 23:59 Weight 63.503 kg Current Medications Generic Name Dose Route Start Last Admin Trade Name Freq PRN Reason Stop Dose Admin Acetaminophen 650 mg 07/21/18 08:00 Tylenol - PO Q6H PRN PAIN LEVEL 1-5 OR FEVER Dextrose/Sodium Chloride 1,000 mls @ 100 mls/hr 07/21/18 04:00 D5-1/2ns - IV ASDIR MATTEO Vancomycin HCl 1,000 mg in 250 mls @ 166.667 mls/hr 07/22/18 01:00 Vancomycin (Pre-Docked) IVPB Q12H MATTEO Protocol Vancomycin HCl 1,000 mg in 250 mls @ 166.667 mls/hr 07/21/18 14:00 Vancomycin (Pre-Docked) IVPB 07/21/18 15:29 ONCE ONE Protocol Imaging - Results Chest X-ray: Pending X-ray: Pending Problem List - Problems (1) Cellulitis Code(s): L03.90 - CELLULITIS, UNSPECIFIED Qualifiers: Site of cellulitis: extremity Site of cellulitis of extremity: upper extremity Laterality: right Qualified Code(s): L03.113 - Cellulitis of right upper limb (2) Heroin dependence Code(s): F11.20 - OPIOID DEPENDENCE, UNCOMPLICATED Assessment/Plan This is a 23 y/o young woman with a PMHx of Heroin IVDU, Depression. Admitted for Sepsis, Cellulitis of the R-Forearm secondary to IVDU for further evaluation of their emergent condition. Plan: 1. Sepsis Right Forearm Cellulitis Will admit to M/S Blood Cultures-pending qSOFA 0 Sepsis Criteria Met III: T Max 102, P- 120, WBC 11.2, Mild Leukocytosis, no left shift T Max 102 Vancomycin started in ED, will continue Appreciate ID consult Chest Xray-pending Xrays- right forearm, right wrist pending- r/o osteo Elevate extremity Tylenol prn Monitor CBC, BMP 2. Heroin Dependence Patient reports using 3 bags of Heroin last night Recent Rehab- [facility] consult- left voice message on the service COWS Score 4 Tylenol, Motrin prn Appreciate Case Management- Detox Facility, patient prefers [facility] 3. Depression Continue Zoloft 4. Tobacco Dependence Counseled on Smoking Cessation Nicoderm Patch FEN: PO fluids as tolerated Replete lytes prn Regular Diet DVT ppx Low Risk OOB SCDs Code Status: Full Code Dispo: Requires Inpatient Care Visit type - Emergency Visit Emergency Visit: Yes ED Registration Date: 07/20/18 Care time: The patient presented to the Emergency Department on the above date and was hospitalized for further evaluation of their emergent condition. - New Patient This patient is new to me today: Yes Date on this admission: 07/21/18 - Critical Care Critical Care patient: No
--- NOTE | 2018-07-21 04:24 | PDOC ---
*Physical Exam - Vital Signs Last Vital Signs Temp Pulse Resp BP Pulse Ox 102 F H 120 H 20 101/60 96 07/20/18 23:16 07/20/18 23:16 07/20/18 23:16 07/20/18 23:16 07/20/18 23:16 ED Treatment Course - LABORATORY CBC & Chemistry Diagram: 07/21/18 01:30 07/21/18 01:30 - ADDITIONAL ORDERS Additional order review: Laboratory Results 07/21/18 07/21/18 07/21/18 01:30 01:30 01:30 PT with INR INR PTT (Actin FS) VBG pH POC VBG pCO2 POC VBG pO2 Mixed VBG HCO3 Sodium 136 Potassium 3.9 Chloride 101 Carbon Dioxide 27 Anion Gap 9 BUN 9 Creatinine 0.6 Creat Clearance w eGFR > 60 Random Glucose 97 Lactic Acid 1.3 Calcium 8.5 Total Bilirubin 0.4 AST 14 L ALT 17 Alkaline Phosphatase 60 Total Protein 7.2 Albumin 3.5 Serum , Qual Negative Urine Color Urine Appearance Urine pH Ur Specific [place] Urine Protein Urine Glucose (UA) Urine Ketones Urine Blood Urine Nitrite Urine Bilirubin Urine Urobilinogen Ur Leukocyte Esterase 07/21/18 07/21/18 07/21/18 01:30 01:25 00:25 PT with INR 14.20 H INR 1.20 H PTT (Actin FS) 28.8 VBG pH 7.40 POC VBG pCO2 45.5 POC VBG pO2 54.9 H Mixed VBG HCO3 27.6 H Sodium Potassium Chloride Carbon Dioxide Anion Gap BUN Creatinine Creat Clearance w eGFR Random Glucose Lactic Acid Calcium Total Bilirubin AST ALT Alkaline Phosphatase Total Protein Albumin Serum , Qual Urine Color Yellow Urine Appearance Slcloudy Urine pH 6.0 Ur Specific [place] 1.021 Urine Protein Negative Urine Glucose (UA) Negative Urine Ketones Negative Urine Blood Negative Urine Nitrite Negative Urine Bilirubin Negative Urine Urobilinogen 2.0 H Ur Leukocyte Esterase Negative 07/21/18 01:30 RBC 4.19 MCV 83.1 MCHC 34.7 RDW 13.7 MPV 8.7 D Neutrophils % 71.0 Lymphocytes % 20.1 D Monocytes % 6.4 Eosinophils % 2.3 Basophils % 0.2 - RADIOLOGY Radiology Studies Ordered: Category Date Time Status FOREARM- RIGHT [RAD] Stat Radiology 07/21/18 03:48 Ordered WRIST W/HAND-RIGHT* [RAD] Stat Radiology 07/21/18 03:48 Ordered - Medications Given in the ED: ED Medications Discontinued Medications Generic Name Dose Route Start Last Admin Trade Name Rupa PRN Reason Stop Dose Admin Acetaminophen 975 mg 07/21/18 01:54 07/21/18 01:57 Tylenol - PO 07/21/18 01:55 975 mg ONCE ONE Administration Sodium Chloride 1,000 mls @ 1,000 mls/hr 07/21/18 02:00 07/21/18 02:40 Normal Saline - IV 07/21/18 02:59 1,000 mls/hr ASDIR STA Administration Vancomycin HCl 1,000 mg 07/20/18 23:54 07/21/18 01:52 Vancomycin (Pre-Docked) IVPB 07/20/18 23:55 1,000 mg ONCE ONE Administration Protocol Medical Decision Making - Medical Decision Making signed out by Dr. Rodríguez 07/21/18 06:28 23 yo IV drug user presents to the ED with a painful and swollen right arm and 102 temp. IV antibiotics started Vanc CBC shows 11 WBC Blood cultures drawn right wrist, hand and forearm x ray ordered Chest X ray for potential endocarditis SUSAN Barragan agrees to have pt admitted under Dr. Bejarano service for further care *DC/Admit/Observation/Transfer Diagnosis at time of Disposition: Cellulitis Qualifiers: Site of cellulitis: extremity Site of cellulitis of extremity: upper extremity Laterality: right Qualified Code(s): L03.113 - Cellulitis of right upper limb - Discharge Dispostion Decision to Admit order: Yes - Referrals Referrals: Geetha Navarro MD [Primary Care Provider] - - Patient Instructions - Post Discharge Activity
[2018-07-21 06:10] VITALS: BMI 26.9
[2018-07-21] MEDS: DEXTROSE 5%-0.45% SALINE 1,000 ML IV SCH ×2 (06:13→17:23)
[2018-07-21] MEDS ORDERED: ACETAMINOPHEN 325 MG TABLET (FP) PO PRN (08:00)
[2018-07-21] MEDS: NICOTINE 14 MG/24 HOURS TOPICAL PATCH TD SCH ×2 (10:11→10:13)
[2018-07-21 11:58] LABS: COCAINE, UR NEGATIVE ng/ml (CUTOFF=300); METHADONE, UR NEGATIVE ng/ml (CUTOFF=300); PHENCYCLIDINE,URINE NEGATIVE ng/ml (CUTOFF=25); URINE AMPHETAMINES NEGATIVE ng/ml (CUTOFF=500); URINE BARBITURATES NEGATIVE ng/ml (CUTOFF=200); URINE BENZODIAZEPINES NEGATIVE ng/ml (CUTOFF=200)
--- NOTE | 2018-07-21 12:00 | PN ---
Progress Note, Physician - Current Medication List Current Medications: Active Medications Acetaminophen (Tylenol -) 650 mg PO Q6H PRN PRN Reason: PAIN LEVEL 1-5 OR FEVER Dextrose/Sodium Chloride (D5-1/2ns -) 1,000 mls @ 100 mls/hr IV ASDIR [facility]TE[facility] Last Admin: 07/21/18 06:13 Dose: 100 mls/hr Vancomycin HCl (Vancomycin (Pre-Docked)) 1,000 mg in 250 mls @ 166.667 mls/hr IVPB Q12H MATTE[facility]; Protocol Vancomycin HCl (Vancomycin (Pre-Docked)) 1,000 mg in 250 mls @ 166.667 mls/hr IVPB ONCE ONE; Protocol Stop: 07/21/18 15:29 Nicotine (Nicoderm Patch -) 14 mg TD DAILY [facility] Last Admin: 07/21/18 10:13 Dose: Not Given - Objective Vital Signs: Vital Signs Temperature 98.2 F 07/21/18 08:20 Pulse Rate 90 07/21/18 08:20 Respiratory Rate 18 07/21/18 08:20 Blood Pressure 91/47 L 07/21/18 08:20 O2 Sat by Pulse Oximetry (%) 98 07/21/18 05:51 Labs: CBC, BMP 07/21/18 01:30 07/21/18 01:30 INR, PTT INR 1.20 (0.83-1.09) H 07/21/18 01:30 Problem List - Problems (1) Sepsis Assessment/Plan: Right Forearm Cellulitis Will admit to M/S Blood Cultures-pending Sepsis Criteria Met III: T Max 102, P- 120, WBC 11.2, Mild Leukocytosis, no left shift T Max 102 Vancomycin started in ED, will continue Appreciate ID consult Monitor CBC, BMP Code(s): A41.9 - SEPSIS, UNSPECIFIED ORGANISM (2) Cellulitis Assessment/Plan: Xrays- right forearm, right wrist pending- r/o osteo Elevate extremity Tylenol prn Code(s): L03.90 - CELLULITIS, UNSPECIFIED Qualifiers: Site of cellulitis: extremity Site of cellulitis of extremity: upper extremity Laterality: right Qualified Code(s): L03.113 - Cellulitis of right upper limb (3) Heroin dependence Assessment/Plan: Patient reports using 3 bags of Heroin last night Recent Rehab- [facility] consult- left voice message on the service Tylenol Motrin prn Code(s): F11.20 - OPIOID DEPENDENCE, UNCOMPLICATED (4) Depression Assessment/Plan: -zoloft -psych Code(s): F32.9 - MAJOR DEPRESSIVE DISORDER, SINGLE EPISODE, UNSPECIFIED
[2018-07-21 12:33] LABS: OPIATES, URI POSITIVE ng/ml (CUTOFF=300)
--- NOTE | 2018-07-21 14:36 | CON.PSY ---
Psychiatry Consult Chief Complaint: I have Heroin addiction aND BEEN DEPRESSED. tAKEN zOLOFT IN THE PAST. sHE RELAPSED ABOUT A year ago. [place] - Previous Psychiatric Treatment Outpatient: More than 6 mos ago - Previous Substance Abuse Treatment Outpatient: More than 6 mos ago - Reason for Previous Treatment Reason for Previous Treatment: Heroin or Other Narcotics - Current Medications Current Medications: Active Medications Acetaminophen (Tylenol -) 650 mg PO Q6H PRN PRN Reason: PAIN LEVEL 1-5 OR FEVER Dextrose/Sodium Chloride (D5-1/2ns -) 1,000 mls @ 100 mls/hr IV ASDIR [facility]TE[facility] Last Admin: 07/21/18 06:13 Dose: 100 mls/hr Vancomycin HCl (Vancomycin (Pre-Docked)) 1,000 mg in 250 mls @ 166.667 mls/hr IVPB Q12H [facility]; Protocol Vancomycin HCl (Vancomycin (Pre-Docked)) 1,000 mg in 250 mls @ 166.667 mls/hr IVPB ONCE ONE; Protocol Stop: 07/21/18 15:29 Last Admin: 07/21/18 14:14 Dose: 166.667 mls/hr Nicotine (Nicoderm Patch -) 14 mg TD DAILY [facility] Last Admin: 07/21/18 10:13 Dose: Not Given - Allergies Allergies: Allergies Allergy/AdvReac Type Severity Reaction Status Date / Time No Known Allergies Allergy Verified 07/20/18 23:16 - Current Living Status Usual Living Arrangement: With Significant Other - Current Mental Status Evaluation Appearance: Well Groomed Attitude: Cooperative - Affect Affect: Constrictive Appropriateness: Appropriate to Content - Mood Mood: Euthymic - Speech/Language Expressive: Coherent - Psychomotor Activity Psychomotor Activity: Normal - Thought Process Thought Process: Intact - Thought Content Hallucinations: Absent Delusions: Absent - Self Perception Self Perception: No Impairment - Cognition Attention: Alert Orientation: Time Memory, Immediate Recall: Intact Memory, Short Term: 3/3 Memory, Remote with Promptin/3 - Concentration Serial Sevens Intact: Yes Simple Calculations Intact: Yes - Abstraction Proverb Interpretation: Intact Judgement: Minimally Impaired - Insight Insight: Intact - Impulse Control Impulse Control: Moderately Impaired - Suicidal Ideation Suicidal Ideation: No - Homicidal Ideation Homicidal Ideation: No Assessment/Plan 1) No need for Zoloft at thias time. 2) needs detox from Heroin and place on Suboxone. 3) Follow up at [place] [facility].
--- NOTE | 2018-07-21 15:43 | PN ---
Progress Note (short form) - Note Progress Note: ID Consult dictated Cellulitis R forearm secondary to IDU R/O sepsis secondary to skin source Await c/s Continue vancomycin HIV testing
--- NOTE | 2018-07-21 16:52 | CONS ---
DATE OF CONSULTATION: 07/21/2018 HISTORY OF PRESENT ILLNESS: The patient is a 23-year-old female with a history injection drug use, evaluated for cellulitis of the right forearm. According to the notes, the patient had injected heroin into her right arm one day prior to admission and subsequently developed erythema, warmth and swelling of the right forearm. She was admitted to the hospital, where an x-ray was performed and was negative. Blood cultures were obtained and are preliminarily negative. Her course is complicated by a fever to 102. PAST MEDICAL HISTORY: As above. LABORATORY DATA: White count 11.2, hematocrit 0.6. SOCIAL HISTORY: Positive for tobacco and heroin use. HIV status is not known. PHYSICAL EXAMINATION: General: The patient is awake and alert, in no acute distress. Vital Signs: Temperature 98.67 (T-max of 102), pulse 82 and regular, blood pressure 107/57, respiratory rate 18 per minute. HEENT: Sclerae anicteric. Heart: Heart sounds S1, S2. No murmur Lungs: Clear. Abdomen: Soft and nontender. Extremities: Negative for edema. On examination of the right upper extremity, there is an area of erythema present in the mid-forearm, extensor aspect. The area is well demarcated. It is warm to touch. There is no fluctuance, crepitus or lymphangitic streaking. IMPRESSION/PLAN: 1. Cellulitis of the right forearm secondary to injection drug use. 2. Fever; rule out bacteremia. 3. Await cultures. 4. Continue empiric vancomycin. 5. If cultures are negative and the cellulitis improves, may substitute oral antibiotic therapy in the next 24 hours. 6. Advised Bactrim double strength b.i.d. for an additional 7 days. 7. HIV testing is recommended. MARIELA SERNA M.D. [id number]
--- NOTE | 2018-07-21 21:18 | EKG ---
Test Reason : Blood Pressure : / mmHG Vent. Rate : 114 BPM Atrial Rate : 114 BPM P-R Int : 138 ms QRS Dur : 082 ms QT Int : 326 ms P-R-T Axes : 056 077 049 degrees QTc Int : 449 ms SINUS TACHYCARDIA POSSIBLE LEFT ATRIAL ENLARGEMENT CANNOT RULE OUT ANTERIOR INFARCT , AGE UNDETERMINED ABNORMAL ECG WHEN COMPARED WITH ECG OF 20-DEC-2014 14:43, NO SIGNIFICANT CHANGE WAS FOUND Confirmed by LELAND MARY, ADI ([id number]) on 07/21/2018 9:18:46 PM Referred By: Confirmed By:ADI HA MD
[2018-07-22] MEDS ORDERED: VANCOMYCIN 1 GRAM (PRE-DOCKED) 1,000 MG/250 ML BAG IVPB SCH (01:00)
[2018-07-22] MEDS: VANCOMYCIN 1 GRAM (PRE-DOCKED) 1,000 MG/250 ML BAG IVPB SCH ×2 (02:36→15:03)
[2018-07-22] MEDS: DEXTROSE 5%-0.45% SALINE 1,000 ML IV SCH ×2 (04:52→23:12)
[2018-07-22] MEDS: NICOTINE 14 MG/24 HOURS TOPICAL PATCH TD SCH (11:41)
[2018-07-22] MEDS ORDERED: LORazepam 2 MG/ML SDV VIAL IVPUSH ONE (11:45)
--- NOTE | 2018-07-22 14:40 | PN ---
Progress Note, Physician - Current Medication List Current Medications: Active Medications Acetaminophen (Tylenol -) 650 mg PO Q6H PRN PRN Reason: PAIN LEVEL 1-5 OR FEVER Last Admin: 07/21/18 23:30 Dose: 650 mg Dextrose/Sodium Chloride (D5-1/2ns -) 1,000 mls @ 100 mls/hr IV ASDIR [facility]TE[facility] Last Admin: 07/22/18 04:52 Dose: 100 mls/hr Vancomycin HCl (Vancomycin (Pre-Docked)) 1,000 mg in 250 mls @ 166.667 mls/hr IVPB BID@0200,1400 [facility]; Protocol Last Admin: 07/22/18 02:36 Dose: 166.667 mls/hr Nicotine (Nicoderm Patch -) 14 mg TD DAILY [facility] Last Admin: 07/22/18 11:41 Dose: Not Given - Objective Vital Signs: Vital Signs Temperature 98.3 F 07/22/18 06:00 Pulse Rate 59 L 07/22/18 06:00 Respiratory Rate 18 07/22/18 06:00 Blood Pressure 118/64 07/22/18 06:00 O2 Sat by Pulse Oximetry (%) 98 07/21/18 05:51 Cardiovascular: Yes: Regular Rate and Rhythm Respiratory: Yes: Regular, CTA Bilaterally Gastrointestinal: Yes: Normal Bowel Sounds, Soft Extremities: Yes: Other (improved) Labs: CBC, BMP 07/21/18 01:30 07/21/18 01:30 INR, PTT INR 1.20 (0.83-1.09) H 07/21/18 01:30 Problem List - Problems (1) Sepsis Assessment/Plan: Right Forearm Cellulitis Blood Cultures-pending Microbiology 07/21/18 00:25 Urine Culture - Final Urine - Urine Clean Catch Contaminated: Please Repeat 07/21/18 01:30 Blood Culture - Preliminary Blood - Peripheral Venous NO GROWTH OBTAINED AFTER 24 HOURS, INCUBATION TO CONTINUE FOR 4 DAYS. 07/21/18 01:30 Blood Culture - Preliminary Blood - Peripheral Venous NO GROWTH OBTAINED AFTER 24 HOURS, INCUBATION TO CONTINUE FOR 4 DAYS. Sepsis Criteria Met III: T Max 102, P- 120, WBC 11.2, Abx per id Appreciate ID consult Monitor CBC, BMP Code(s): A41.9 - SEPSIS, UNSPECIFIED ORGANISM (2) Cellulitis Assessment/Plan: Xrays- right forearm, right wrist pending- r/o osteo Elevate extremity Tylenol prn Code(s): L03.90 - CELLULITIS, UNSPECIFIED Qualifiers: Site of cellulitis: extremity Site of cellulitis of extremity: upper extremity Laterality: right Qualified Code(s): L03.113 - Cellulitis of right upper limb (3) Heroin dependence Assessment/Plan: Given ativan 1 mg with good results Patient reports using 3 bags of Heroin last night Recent Rehab- [facility] consult- Pending Tylenol, Motrin prn Suboxone Code(s): F11.20 - OPIOID DEPENDENCE, UNCOMPLICATED (4) Depression Assessment/Plan: -zoloft -psych Code(s): F32.9 - MAJOR DEPRESSIVE DISORDER, SINGLE EPISODE, UNSPECIFIED
[2018-07-22] MEDS ORDERED: PT OWN MED DRAWER 7, Y5N ONE (14:51)
[2018-07-22] MEDS: BUPRENORPHINE/NALOXONE 2 MG/0.5 MG FILM PACKET SL SCH ×2 (15:07→15:13)
[2018-07-22] MEDS ORDERED: METHOCARBAMOL 500 MG TABLET PO PRN (15:08)
[2018-07-22] MEDS ORDERED: hydrOXYzine HCL 25 MG TABLET (FP) PO PRN (15:09)
--- NOTE | 2018-07-22 15:16 | PN ---
[facility] Progress Note (SOAP) Subjective: patient referred for consult, reports withdrawal symptoms : anxiety , irritability , chills ,sweating, muscle cramps, abdominal cramps, denies nausea / vomiting / diarrhea . Patient reports use of cocaine since age 16 , heroin since age 18 with intermittent periods of sobriety , most recently x 1 year, s/p relapse 1 year ago, detox x 3-4 , rehab x 3 most recently in [place] through her father's union insurance where she was given Suboxone for detox, stayed for rehab , relapse after return home, currently not participating in outpatient program , has been in outpatient in the past and had prescription for Suboxone in the past, states has medications left over at home ( Suboxone ) . Denies OD , IVDU x 8-9 months , denies sharing + re-using needles, injects in both arms and hands , presented to ED yesterday due to swelling in right forearm , diagnosed with cellulitis and started on IV ABx . Denes other illicits or ETOH , + tobacco 1 ppd . i-STOP : no rx . Objective: 07/22/18 15:20 wnwd , moderate distress , tearful at times . CBC WBC 11.2 K/mm3 (4.0-10.0) H 07/21/18 01:30 RBC 4.19 M/mm3 (3.60-5.2) 07/21/18 01:30 Hgb 12.1 GM/dL (10.7-15.3) 07/21/18 01:30 Hct 34.8 % (32.4-45.2) 07/21/18 01:30 MCV 83.1 fl (80-96) 07/21/18 01:30 MCH 28.8 pg (25.7-33.7) 07/21/18 01:30 MCHC 34.7 g/dl (32.0-36.0) 07/21/18 01:30 RDW 13.7 % (11.6-15.6) 07/21/18 01:30 Plt Count 208 K/MM3 (134-434) D 07/21/18 01:30 MPV 8.7 fl (7.5-11.1) D 07/21/18 01:30 Absolute Neuts (auto) 7.9 K/mm3 (1.5-8.0) 07/21/18 01:30 Neutrophils % 71.0 % (42.8-82.8) 07/21/18 01:30 Lymphocytes % 20.1 % (8-40) D 07/21/18 01:30 Monocytes % 6.4 % (3.8-10.2) 07/21/18 01:30 Eosinophils % 2.3 % (0-4.5) 07/21/18 01:30 Basophils % 0.2 % (0-2.0) 07/21/18 01:30 Nucleated RBC % 0 % (0-0) 07/21/18 01:30 Active Medications Generic Name Dose Route Start Last Admin Trade Name Freq PRN Reason Stop Dose Admin Acetaminophen 650 mg 07/21/18 08:00 07/21/18 23:30 Tylenol - PO 650 mg Q6H PRN Administration PAIN LEVEL 1-5 OR FEVER Buprenorphine/Naloxone 1 each 07/22/18 14:45 07/22/18 15:13 Suboxone 2mg/0.5mg Sl Film - SL Not Given DAILY [facility] Clonidine 0.1 mg 07/22/18 15:07 Catapres - PO Q4H PRN withdrawal Hydroxyzine Pamoate 25 mg 07/22/18 15:09 Vistaril - PO Q4H PRN FOR ITCHING Dextrose/Sodium Chloride 1,000 mls @ 100 mls/hr 07/21/18 04:00 07/22/18 04:52 D5-1/2ns - IV 100 mls/hr ASDIR MATTEO Administration Vancomycin HCl 1,000 mg in 250 mls @ 166.667 mls/hr 07/22/18 02:00 07/22/18 15:03 Vancomycin (Pre-Docked) IVPB 166.667 mls/hr BID@0200,1400 [facility] Administration Protocol Methocarbamol 500 mg 07/22/18 15:08 Robaxin - PO QID PRN MUSCLE SPASMS Nicotine 14 mg 07/21/18 10:00 07/22/18 11:41 Nicoderm Patch - TD Not Given DAILY [facility] Vital Signs - 24 hr 07/21/18 07/21/18 07/22/18 17:30 22:00 06:00 Temperature 98.4 F 99.0 F 98.3 F Pulse Rate 91 H 89 59 L Respiratory 18 18 18 Rate Blood Pressure 100/52 L 118/64 Assessment: 07/22/18 15:21 opioid dependence with withdrawal cocaine dependence nicotine dependence Plan: discussed with patient at length , patient refused detox with Methadone or Suboxone , states wants to go to detox after d/c from hospital , does not want inpatient detox at [facility] at this time , states was told anticipated d /c is tomorrow and " I know what I have to do " . Suboxone already ordered this morning, patient states she does not want to take it, and is interested in a non- opioid medications. Meds ordered : methocarbamol, clonidine , hydroxyzine prn for symptom mitigation . pass worker to discuss with patient regarding after- care plans . Patient verbalized understanding and agreement with POC.
[2018-07-22] MEDS: cloNIDine HCL 0.1 MG TABLET PO PRN (16:47)
[2018-07-23] MEDS: VANCOMYCIN 1 GRAM (PRE-DOCKED) 1,000 MG/250 ML BAG IVPB SCH (01:17)
[2018-07-23 06:26] VITALS: BP 111/70; PULSE 64; TEMP 98
[2018-07-23] MEDS: DEXTROSE 5%-0.45% SALINE 1,000 ML IV SCH (09:12)
[2018-07-23] MEDS: NICOTINE 14 MG/24 HOURS TOPICAL PATCH TD SCH (09:31)
[2018-07-23] MEDS: BUPRENORPHINE/NALOXONE 2 MG/0.5 MG FILM PACKET SL SCH (09:32)
[2018-07-23] MEDS: cloNIDine HCL 0.1 MG TABLET PO PRN (09:40)
[2018-07-23] MEDS ORDERED: LORazepam 0.5 MG TABLET PO PRN (11:13)
--- NOTE | 2018-07-23 11:14 | PN ---
Progress Note, Physician Chief Complaint: Cellulitis Right arm s/p IDU History of Present Illness: Dysphoric wants to leave to go through her father's insurance to get herself admitted to rehab. refuses all meds here including subaxone Mother at bedside - Current Medication List Current Medications: Active Medications Acetaminophen (Tylenol -) 650 mg PO Q6H PRN PRN Reason: PAIN LEVEL 1-5 OR FEVER Last Admin: 07/21/18 23:30 Dose: 650 mg Buprenorphine/Naloxone (Suboxone 2mg/0.5mg Sl Film -) 1 each SL DAILY [facility] Last Admin: 07/23/18 09:32 Dose: Not Given Clonidine (Catapres -) 0.1 mg PO Q4H PRN PRN Reason: withdrawal Last Admin: 07/23/18 09:40 Dose: 0.1 mg Hydroxyzine HCl (Atarax -) 25 mg PO Q4H PRN PRN Reason: FOR ITCHING Dextrose/Sodium Chloride (D5-1/2ns -) 1,000 mls @ 100 mls/hr IV ASDIR [facility] Last Admin: 07/23/18 09:12 Dose: Not Given Vancomycin HCl (Vancomycin (Pre-Docked)) 1,000 mg in 250 mls @ 166.667 mls/hr IVPB BID@0200,1400 [facility]; Protocol Last Admin: 07/23/18 01:17 Dose: 166.667 mls/hr Methocarbamol (Robaxin -) 500 mg PO Q6H PRN PRN Reason: MUSCLE SPASMS Nicotine (Nicoderm Patch -) 14 mg TD DAILY [facility] Last Admin: 07/23/18 09:31 Dose: Not Given - Objective Vital Signs: Vital Signs Temperature 98.0 F 07/23/18 06:00 Pulse Rate 64 07/23/18 06:00 Respiratory Rate 18 07/23/18 06:00 Blood Pressure 111/70 07/23/18 06:00 O2 Sat by Pulse Oximetry (%) 98 07/21/18 05:51 Constitutional: Yes: Well Nourished, No Distress, Anxious Cardiovascular: Yes: Regular Rate and Rhythm Respiratory: Yes: Regular Gastrointestinal: Yes: Normal Bowel Sounds, Soft Musculoskeletal: Yes: WNL Extremities: Yes: WNL Edema: No Peripheral Pulses WNL: Yes Neurological: Yes: Alert, Oriented Psychiatric: Yes: Alert, Oriented Labs: CBC, BMP 07/21/18 01:30 07/21/18 01:30 INR, PTT INR 1.20 (0.83-1.09) H 07/21/18 01:30 Problem List - Problems (1) IV drug abuse Assessment/Plan: -Seen by S and Psychiatry - Code(s): F19.10 - OTHER PSYCHOACTIVE SUBSTANCE ABUSE, UNCOMPLICATED (2) Depression Assessment/Plan: Seen by Psychiatry -no SSRI recommended at this time Code(s): F32.9 - MAJOR DEPRESSIVE DISORDER, SINGLE EPISODE, UNSPECIFIED (3) Heroin dependence Assessment/Plan: -pt encouraged to go through her father's insurance to admit herself into inpatient rehab. Code(s): F11.20 - OPIOID DEPENDENCE, UNCOMPLICATED Assessment/Plan see problem list
== END 2018-07-23 13:04 | disposition home or self-care (01) | DRG 720 ==
LOC: JER 22:30 → JERBED 07-21 04:24 → J8W 07-21 05:46 → OBSVTOIN 07-21 13:45
PROVIDERS: ADMIT Internal Medicine; ATTEND Family Medicine
DX: A41.9 Sepsis, unspecified organism (principal); L03.113 Cellulitis of right upper limb; F17.210 Nicotine dependence, cigarettes, uncomplicated; F32.9 Major depressive disorder, single episode, unspecified; F11.23 Opioid dependence with withdrawal; F14.20 Cocaine dependence, uncomplicated; F19.10 Other psychoactive substance abuse, uncomplicated; D72.829 Elevated white blood cell count, unspecified
CPT/HCPCS: 36415; 71045-TC-FY; 73090-TC-RT-FY; 73110-TC-RT-FY; 73130-TC-RT-FY; 80053; 80307; 81003; 82803; 83605; 84484; 84703; 85025; 85610; 85730; 87040; 87086; 93005; 93010; 99281-25; G0378; J0735; J7030

== ENCOUNTER 2019-01-14 20:39 | Emergency (ER) | payer OTHER ==
[2019-01-14 20:55] VITALS: BP 117/69; PULSE 95; TEMP 98.3; BMI 25.8
--- NOTE | 2019-01-14 21:19 | PDOC ---
History of Present Illness - General Chief Complaint: Abscess Boil Stated Complaint: ABSCESS Time Seen by Provider: 01/14/19 21:19 History Source: Patient Exam Limitations: No Limitations - History of Present Illness Initial Comments: 01/14/19 22:18 HISTORY OF PRESENT ILLNESS: This is a 23-year-old woman past medical history of cellulitis and IV drug use presents emergency department for evaluation of abscess to her left forearm. Patient reports intravenous heroin use in this area which is now swollen and is causing pain. No recent travel or sick contacts. PAST MEDICAL HISTORY: see HPI SURGICAL HISTORY: Denies ALLERGIES: No known drug allergies REVIEW OF SYSTEMS General/Constitutional: Denies fever or chills. Denies weakness, weight change. HEENT: Denies change in vision. Denies ear pain or discharge. Denies sore throat. Cardiovascular: Denies chest pain or shortness of breath. Respiratory: Denies cough, wheezing, or hemoptysis. Gastrointestinal: Denies nausea, vomiting, diarrhea or constipation. Denies rectal bleeding. Genitourinary: Denies dysuria, frequency, or change in urination. Musculoskeletal: Denies joint or muscle swelling or pain. Denies neck or back pain. Skin and breasts: see HPI Neurologic: Denies headache, vertigo, loss of consciousness, or loss of sensation. Psychiatric: Denies depression or anxiety. Endocrine: Denies increased thirst. Denies abnormal weight change. Hematologic/Lymphatic: Denies anemia, easy bleeding, or history of blood clots. Allergic/Immunologic: Denies hives or skin allergy. Denies latex allergy. PHYSICAL EXAM General Appearance: Well-appearing, appropriately dressed. No apparent distress , no intoxication. HEENT: EOMI, PERRLA, normal ENT inspection, normal voice, TMs normal, pharynx normal. No conjunctival pallor. No photophobia, scleral icterus. Neck: Supple. Trachea midline. No tenderness, rigidity, carotid bruit, stridor , lymphadenopathy, or thyromegaly. Respiratory/Chest: Lungs CTAB. No shortness of breath, chest tenderness, respiratory distress, accessory muscle use. No crackles, rales, rhonchi, stridor , wheezing, dullness Cardiovascular: RRR. S1, S2. No JVD, murmur, bradycardia, tachycardia. Vascular Pulses: Dorsalis-Pedis (R): 2+, Dorsalis-Pedis (L): 2+ Gastrointestinal/Abdominal: Normal bowel sounds. Abdomen soft, non-distended. No tenderness or rebound tenderness. No organomegaly, pulsatile mass, guarding, hernia, hepatomegaly, splenomegaly. Lymphatic: No adenopathy, tenderness. Musculoskeletal/Extremities: FAROM of all extremities, normal capillary refill. 3 cm circular area of fluctuance present to the dorsum of the left forearm over the ulna. Approximate 1 cm of surrounding induration and erythema present. Integumentary: 3 cm circular area of fluctuance present to the dorsum of the left forearm over the ulna. Approximate 1 cm of surrounding induration and erythema present. Neurologic: mingler operator II-XII intact. Fully oriented, alert. Appropriate mood/affect. Motor strength 5/5. No appreciable EOM palsy, facial droop or sensory deficit. Past History - Past Medical History Allergies/Adverse Reactions: Allergies Allergy/AdvReac Type Severity Reaction Status Date / Time No Known Allergies Allergy Verified 01/14/19 22:59 Home Medications: Ambulatory Orders Sertraline HCl [Zoloft -] 50 mg PO DAILY 05/13/18 Clindamycin [Cleocin -] 150 mg PO Q8H #21 capsule 01/15/19 Clindamycin [Cleocin -] 300 mg PO TID #21 capsule 01/15/19 COPD: No - Immunization History Immunization Up to Date: No - Suicide/Smoking/Psychosocial Hx Smoking History: Unknown if ever smoked Have you smoked in the past 12 months: Yes Number of Cigarettes Smoked Daily: 20 'Breaking Loose' booklet given: 05/10/17 Hx Alcohol Use: No Drug/Substance Use Hx: Yes (HEROIN) Substance Use Type: None Hx Substance Use Treatment: Yes (3 times) *Physical Exam - Vital Signs Last Vital Signs Temp Pulse Resp BP Pulse Ox 98.3 F 95 H 18 117/69 100 01/14/19 20:40 01/14/19 20:40 01/14/19 20:40 01/14/19 20:40 01/14/19 20:40 Procedures - Consent Consent obtained: Verbal, From Patient - Incision and Drainage I&D Site: Left: Arm (forearm) Betadine cleansed: Yes Anesthesia: 2% Lidocaine Volume(ml): 6 Blade Size: 11 Attempts: 1 Plain Packing: Yes Complications: none Dressing: Yes Progress: 01/15/19 01:10 pt tolerated well. ED Treatment Course - LABORATORY CBC & Chemistry Diagram: 01/14/19 22:50 01/14/19 22:50 Medical Decision Making - Medical Decision Making 01/14/19 22:34 A/P: 23-year-old woman with abscess to the dorsum of the left arm 3 circular area of fluctuance present over the dorsum of the left wrist over the ulna Approximate 1 cm area of erythema and induration present around area of fluctuance Full active range of motion present Neurovascular intact Labs including blood cultures X-ray Clindamycin 600 mg IV 01/15/19 00:30 X-rays as read by me: Soft tissue swelling present to the ulnar aspect of the left forearm. No foreign body visualized. 01/15/19 01:05 CBC notable for WBC of 13,000. Chemistries were hemolyzed. I and D-see procedure note for details Wound culture Discharge home with follow-up with Dr. Sharma. *DC/Admit/Observation/Transfer Diagnosis at time of Disposition: Abscess - Discharge Dispostion Disposition: HOME Condition at time of disposition: Fair Decision to Admit order: No - Prescriptions Prescriptions: Clindamycin [Cleocin -] 150 mg PO Q8H #21 capsule Clindamycin [Cleocin -] 300 mg PO TID #21 capsule - Referrals Referrals: Geetha Navarro MD [Primary Care Provider] - Michael Sharma MD [Staff Physician] - - Patient Instructions Additional Instructions: Take clindamycin 450mg 3 times a day for the next 7 days Finish all antibiotics even if you feel better. Apply warm compresses to your arm as needed. You have been given a referral for surgeon. Please follow-up for reevaluation of your wound within the next 48 hours. Return to emergency department for any worsening pain, drainage, fevers, red streaks up your arm or any other concerns. Thank you very much for choosing us to provide your emergent health care needs. - Post Discharge Activity Forms/Work/School Notes: Back to Work
--- NOTE | 2019-01-14 21:25 | PDOC ---
*Physical Exam - Vital Signs Last Vital Signs Temp Pulse Resp BP Pulse Ox 98.3 F 95 H 18 117/69 100 01/14/19 20:40 01/14/19 20:40 01/14/19 20:40 01/14/19 20:40 01/14/19 20:40 ED Treatment Course - LABORATORY CBC & Chemistry Diagram: 01/14/19 22:50 01/14/19 22:50 Medical Decision Making - Medical Decision Making 01/14/19 21:25 Patient seen by the advanced practice provider under my direct supervision. Ancillary testing reviewed as necessary. I agree with plan as outlined by the advanced practice provider. *DC/Admit/Observation/Transfer Diagnosis at time of Disposition: Abscess - Referrals Referrals: Geetha Navarro MD [Primary Care Provider] - - Patient Instructions - Post Discharge Activity
[2019-01-14] MEDS ORDERED: CLINDAMYCIN 600MG PREMIX IVPB 600 MG/50 ML BAG IVPB ONE ×2 (21:51→22:31)
[2019-01-14] MEDS ORDERED: ACETAMINOPHEN 1000 MG/100 ML VIAL (NON FORMULARY) IVPB ONE (22:38)
[2019-01-14 23:04] LABS: BASO % 0.6 % (0-2.0); EOS % 0.6 % (0-4.5); HEMATOCRIT 40.8 % (32.4-45.2); HEMOGLOBIN 13.5 GM/dL (10.7-15.3); LYMPH % 14.1 % (8-40); MCH 27.8 pg (25.7-33.7); MEAN CELL VOLUME 84.2 fl (80-96); MEAN PLT VOLUME 9.8 fl (7.5-11.1); MONO % 6.7 % (3.8-10.2); PLATELET COUNT 177 K/MM3 (134-434); RBC 4.85 M/mm3 (3.60-5.2); RDW 14.4 % (11.6-15.6)
[2019-01-14] MEDS ORDERED: ACETAMINOPHEN INJECTION 100 ML IVPB ONE (23:07)
[2019-01-15 02:02] LABS: CALCIUM 8.8 mg/dL (8.5-10.1); CREATININE 0.7 mg/dL (0.55-1.3); POTASSIUM 3.4 mmol/L (3.5-5.1)
== END 2019-01-15 01:25 | disposition home or self-care (01) ==
LOC: JER 20:39
PROC: 0J9H0ZZ Drainage of Left Lower Arm Subcutaneous Tissue and Fascia, Open Approach (ICD-10-PCS; principal; 2019-01-14)
PROC: 3E03329 Introduction of Other Anti-infective into Peripheral Vein, Percutaneous Approach (ICD-10-PCS; 2019-01-14)
PROC: 3E033NZ Introduction of Analgesics, Hypnotics, Sedatives into Peripheral Vein, Percutaneous Approach (ICD-10-PCS; 2019-01-14)
DX: L02.414 Cutaneous abscess of left upper limb (principal); F11.10 Opioid abuse, uncomplicated; Z87.2 Personal history of diseases of the skin and subcutaneous tissue
CPT/HCPCS: 36415; 73090-TC-LT-FY; 80048; 84703; 85025; 87040; 87070; 87186; 87205; 99282-25; J0131

== ENCOUNTER 2021-04-17 10:45 | Inpatient (IN) | payer OTHER ==
[2021-04-17 12:03] LABS: BASO % 0.4 % (0-2.0); EOS % 2.5 % (0-4.5); HEMOGLOBIN 11.4 GM/dL (10.7-15.3); LYMPH % 8.7 % (8-40); MCH 29.2 pg (25.7-33.7); MCHC 33.4 g/dl (32.0-36.0); MEAN CELL VOLUME 87.4 fl (80-96); MEAN PLT VOLUME 10.2 fl (7.5-11.1); MONO % 5.7 % (3.8-10.2); NEUT % 82.7 % (42.8-82.8); PLATELET COUNT 204 10^3/uL (134-434); RBC 3.89 M/mm3 (3.60-5.2); RDW 14.1 % (11.6-15.6); WHITE BLOOD COUNT 15.4 K/mm3 (4.0-10.0)
[2021-04-17 12:09] VITALS: BMI 35.2
[2021-04-17 12:13] LABS: CALCIUM 8.6 mg/dL (8.5-10.1); INR 0.94 (0.83-1.09); PROTHROMBIN TIME (PATIENT) 11.6 SEC (9.7-13.0)
[2021-04-17 12:16] LABS: ACTIVATED PTT 27.1 SECONDS (25.2-36.5)
[2021-04-17 12:17] LABS: CREATININE 0.5 mg/dL (0.55-1.3)
[2021-04-17] MEDS ORDERED: FENTANYL/BUPIVACAINE/NS/PF - PCEA - 50 ML DISP.SYRIN EP ONE ×4 (12:25→23:13)
[2021-04-17] MEDS ORDERED: BUPIVACAINE HCL/PF 0.25% (2.5MG/ML) 10 ML VIAL ONE (12:27)
[2021-04-17] MEDS ORDERED: ELECTROLYTE-148 SOLN 1,000 ML IV SCH (12:45)
[2021-04-17] MEDS ORDERED: DEXTROSE 5%-LACTATED RINGERS 1,000 ML IV SCH (12:45)
[2021-04-17 12:55] LABS: URINE BARBITURATES NEGATIVE (NEGATIVE); URINE BENZODIAZEPINES NEGATIVE (NEGATIVE)
[2021-04-17 12:56] LABS: COCAINE, UR NEGATIVE (NEGATIVE); METHADONE, UR NEGATIVE (NEGATIVE); PHENCYCLIDINE,URINE NEGATIVE (NEGATIVE)
[2021-04-17] MEDS: FENTANYL/BUPIVACAINE/NS/PF - PCEA - 50 ML DISP.SYRIN EP SCH ×4 (13:00→23:10)
[2021-04-17] MEDS ORDERED: NALOXONE HCL 0.4 MG/ML VIAL IVPUSH PRN (13:03)
[2021-04-17 13:06] LABS: OPIATES, URI POSITIVE (NEGATIVE); URINE AMPHETAMINES NEGATIVE (NEGATIVE)
[2021-04-17] MEDS ORDERED: PCA PUMP NR ONE ×2 (16:49→23:13)
[2021-04-17] MEDS ORDERED: OXYTOCIN 20 UNITS in 0.9% NS 20 UNIT/1,000 ML INFUS.BAG IV ONE (19:35)
[2021-04-17] MEDS ORDERED: OXYTOCIN 30 UNITS in 0.9% NS 30 UNIT/500 ML INFUS.BAG IVPB ONE (20:36)
[2021-04-18] MEDS ORDERED: LIDOCAINE HCL/EPINEPHRINE/PF 10 ML VIAL ONE (00:12)
[2021-04-18] MEDS ORDERED: diphenhydrAMINE HCL 25 MG CAPSULE (FP) PO PRN (00:14)
[2021-04-18] MEDS ORDERED: oxyCODONE HCL 5 MG TABLET PO PRN (00:14)
[2021-04-18] MEDS ORDERED: ONDANSETRON 4 MG/2 ML VIAL IVPUSH PRN (00:14)
[2021-04-18] MEDS ORDERED: BENZOCAINE 28 GM HEMORRHOIDAL OINTMENT PR PRN (00:14)
[2021-04-18] MEDS ORDERED: BENZOCAINE 20% 57 GM BOTTLE TP PRN (00:14)
[2021-04-18] MEDS ORDERED: WITCH HAZEL 50% (TUCKS) 40 PAD/JAR PAD TP PRN (00:14)
[2021-04-18] MEDS ORDERED: METHYLERGONOVINE MALEATE 0.2 MG/1 ML AMP IM PRN (00:14)
[2021-04-18] MEDS ORDERED: DEXTROSE 5%-LACTATED RINGERS 1,000 ML IV SCH (00:15)
[2021-04-18] MEDS ORDERED: OXYTOCIN 20 UNITS in 0.9% NS 20 UNIT/1,000 ML INFUS.BAG IV SCH (00:15)
[2021-04-18] MEDS ORDERED: ENOXAPARIN NA (PORCINE) 40 MG/0.4 ML DISP.SYRIN SQ ONE (00:16)
[2021-04-18] MEDS ORDERED: CITRIC ACID/SODIUM CITRATE 30 ML UNIT-DOSE CUP PO ONE (00:17)
[2021-04-18] MEDS ORDERED: PHENYLEPHRINE HCL 10 MG/1 ML SINGLE DOSE VIAL ONE (00:20)
[2021-04-18] MEDS ORDERED: OXYTOCIN 30 UNITS in 0.9% NS 30 UNIT/500 ML INFUS.BAG IVPB SCH (00:30)
[2021-04-18] MEDS ORDERED: MIDAZOLAM HCL 2 MG/2 ML SINGLE DOSE VIAL ONE ×2 (00:54→01:01)
[2021-04-18 01:48] LABS: CORD BASE EXCESS -3.6 mmol/L (0-2); CORD HCO3 22.4 mmHg (20-29); CORD PCO2 43.7 mmHg (30-78); CORD pH 7.327 (7.14-7.44)
[2021-04-18] MEDS ORDERED: ceFAZolin SODIUM 1 GM VIAL ONE ×2 (01:53)
[2021-04-18] MEDS ORDERED: OXYTOCIN 10 UNIT/ML 10ML MDV ONE ×2 (01:53)
[2021-04-18] MEDS ORDERED: PHYTONADIONE NEONATAL 1 MG/0.5 ML AMP IM ONE (02:00)
[2021-04-18] MEDS ORDERED: ERYTHROMYCIN 0.5% OPHTHALMIC OINTMENT 3.5 GM TUBE OU ONE (02:00)
[2021-04-18] MEDS ORDERED: IBUPROFEN 800 MG/8 ML IJ IVPB ONE (02:33)
[2021-04-18] MEDS: IBUPROFEN 800 MG/8 ML IJ IVPB PRN ×2 (02:40→08:40)
[2021-04-18] MEDS: CEFAZOLIN 1 GM/D5W 1 GM/50 ML BAG IVPB SCH ×2 (04:15→10:03)
[2021-04-18] MEDS: IBUPROFEN 600 MG TABLET (FP) PO PRN ×2 (15:49→22:48)
[2021-04-18] MEDS: SIMETHICONE 80 MG TAB.CHEW (FP) PO PRN (22:47)
[2021-04-18] MEDS: oxyCODONE HCL 5 MG TABLET PO PRN (22:47)
[2021-04-19] MEDS ORDERED: BISACODYL 10 MG SUPP.RECT PR PRN (00:14)
[2021-04-19] MEDS: SIMETHICONE 80 MG TAB.CHEW (FP) PO PRN (05:02)
[2021-04-19] MEDS: oxyCODONE HCL 5 MG TABLET PO PRN (05:03)
[2021-04-19] MEDS: IBUPROFEN 600 MG TABLET (FP) PO PRN ×3 (05:09→20:45)
[2021-04-19] MEDS: ACETAMINOPHEN 325 MG TABLET (FP) PO PRN (08:11)
[2021-04-19 09:05] LABS: BASO % 0.2 % (0-2.0); EOS % 1.3 % (0-4.5); HEMATOCRIT 27.1 % (32.4-45.2); LYMPH % 6.8 % (8-40); MCH 29.1 pg (25.7-33.7); MCHC 33.3 g/dl (32.0-36.0); MEAN CELL VOLUME 87.4 fl (80-96); MEAN PLT VOLUME 10.4 fl (7.5-11.1); MONO % 6.7 % (3.8-10.2); PLATELET COUNT 165 10^3/uL (134-434); RDW 14.6 % (11.6-15.6); WHITE BLOOD COUNT 18.8 K/mm3 (4.0-10.0)
[2021-04-20] MEDS: IBUPROFEN 600 MG TABLET (FP) PO PRN ×2 (01:36→09:56)
[2021-04-20] MEDS: SIMETHICONE 80 MG TAB.CHEW (FP) PO PRN (09:56)
[2021-04-20] MEDS ORDERED: SENNOSIDES/DOCUSATE COMBO (SENNA PLUS) TABLET (UD) PO PRN (22:00)
[2021-04-21 11:34] LABS: BASO % 0.3 % (0-2.0); EOS % 3.6 % (0-4.5); HEMATOCRIT 28.7 % (32.4-45.2); HEMOGLOBIN 9.5 GM/dL (10.7-15.3); LYMPH % 11.4 % (8-40); MCH 28.7 pg (25.7-33.7); MCHC 33.2 g/dl (32.0-36.0); MEAN CELL VOLUME 86.6 fl (80-96); MEAN PLT VOLUME 9.8 fl (7.5-11.1); MONO % 7.9 % (3.8-10.2); NEUT % 76.8 % (42.8-82.8); PLATELET COUNT 243 10^3/uL (134-434); RBC 3.31 M/mm3 (3.60-5.2); RDW 14.5 % (11.6-15.6); WHITE BLOOD COUNT 14.3 K/mm3 (4.0-10.0)
[2021-04-21] MEDS: ACETAMINOPHEN 325 MG TABLET (FP) PO PRN (12:01)
[2021-04-21] MEDS: SIMETHICONE 80 MG TAB.CHEW (FP) PO PRN (12:01)
[2021-04-21] MEDS: IBUPROFEN 600 MG TABLET (FP) PO PRN (12:05)
[2021-04-22 11:22] VITALS: BP 123/79; PULSE 100; TEMP 98.2
== END 2021-04-22 11:55 | disposition home or self-care (01) | DRG 540 ==
LOC: JLDR 10:45 → J3W 04-18 03:15
PROVIDERS: ADMIT Obstetrics & Gynecology; ATTEND Obstetrics & Gynecology
PROC: 10D00Z1 Extraction of Products of Conception, Low, Open Approach (ICD-10-PCS; principal; 2021-04-17)
DX: O62.0 Primary inadequate contractions (principal); O64.0XX0 Obstructed labor due to incomplete rotation of fetal head, not applicable or unspecified; O99.214 Obesity complicating childbirth; E66.9 Obesity, unspecified; O99.334 Smoking (tobacco) complicating childbirth; F17.210 Nicotine dependence, cigarettes, uncomplicated; O90.81 Anemia of the puerperium; D62 Acute posthemorrhagic anemia; Z3A.39 39 weeks gestation of pregnancy; Z37.0 Single live birth; Z86.59 Personal history of other mental and behavioral disorders; Z91.5 Personal history of self-harm
CPT/HCPCS: 36415; 36600; 80048; 80307; 82803; 85025; 85610; 85730; 86780; 86850; 86900; 86901; 94010; C9803; U0003; U0005

== ENCOUNTER 2022-11-02 10:00 | Inpatient (IN) | payer OTHER ==
[2023-01-02 09:43] VITALS: BMI 39.9
[2023-01-02 10:51] LABS: INR 1.06 (0.83-1.09); PROTHROMBIN TIME (PATIENT) 12.3 SEC (9.7-13.0)
[2023-01-02 10:54] LABS: ACTIVATED PTT 22.5 SECONDS (25.2-36.5)
[2023-01-02 11:00] LABS: POTASSIUM 4.1 mmol/L (3.5-5.1)
[2023-01-02 11:01] LABS: CALCIUM 8.8 mg/dL (8.5-10.1)
[2023-01-02 11:03] LABS: ALBUMIN 2.2 g/dl (3.4-5.0); BLOOD UREA NITROGEN 4.8 mg/dL (7-18)
[2023-01-02 11:04] LABS: URIC ACID 4.3 mg/dL (2.6-7.2)
[2023-01-02 11:06] LABS: BILIRUBIN,TOTAL 0.9 mg/dL (0.2-1); CREATININE 0.4 mg/dL (0.55-1.3); TOT PROT 6.4 g/dl (6.4-8.2)
[2023-01-02] MEDS ORDERED: KETOROLAC TROMETHAMINE 30 MG/1 ML VIAL ONE (11:36)
[2023-01-02] MEDS ORDERED: FENTANYL CITRATE/PF 50 MCG/ML VIAL ONE (11:36)
[2023-01-02] MEDS ORDERED: PHENYLEPHRINE HCL 10 MG/1 ML SINGLE DOSE VIAL ONE (11:36)
[2023-01-02] MEDS ORDERED: morphine SULFATE/PF 1 MG/2 ML (2cc Syringe - QUVA) ONE (11:36)
[2023-01-02] MEDS ORDERED: ONDANSETRON 4 MG/2 ML VIAL ONE (11:36)
[2023-01-02] MEDS ORDERED: ceFAZolin SODIUM 1 GM VIAL ONE (11:36)
[2023-01-02] MEDS ORDERED: OXYTOCIN 10 UNITS/ML VIAL ONE (11:36)
[2023-01-02 13:32] LABS: HIV INTERPRETATION NEGATIVE (NEGATIVE)
[2023-01-02 13:45] LABS: CORD PCO2 58.5 mmHg (30-78); CORD pH 7.212 (7.14-7.44)
[2023-01-02 13:48] LABS: CORD BASE EXCESS -2.1 mmol/L (0-2); CORD HCO3 25.1 mmHg (20-29); CORD pH 7.301 (7.14-7.44)
[2023-01-02] MEDS ORDERED: OXYTOCIN 20 UNITS in 0.9% NS 20 UNIT/1,000 ML INFUS.BAG IV ONE (14:04)
[2023-01-02] MEDS ORDERED: BENZOCAINE 28 GM HEMORRHOIDAL OINTMENT TP PRN (14:21)
[2023-01-02] MEDS ORDERED: BENZOCAINE 20% 57 GM BOTTLE TP PRN (14:21)
[2023-01-02] MEDS ORDERED: IBUPROFEN 600 MG TABLET (FP) PO PRN (14:21)
[2023-01-02] MEDS ORDERED: METHYLERGONOVINE MALEATE 0.2 MG/1 ML AMP IM PRN (14:21)
[2023-01-02] MEDS ORDERED: WITCH HAZEL 50% (TUCKS) 40 PAD/JAR PAD TP PRN (14:21)
[2023-01-02] MEDS ORDERED: SENNOSIDES/DOCUSATE COMBO (SENNA PLUS) TABLET (UD) PO PRN (14:21)
[2023-01-02] MEDS ORDERED: ONDANSETRON 4 MG/2 ML VIAL IVPUSH PRN (14:29)
[2023-01-02] MEDS ORDERED: ceFAZolin 2 GRAM PREMIX BAG IVPB SCH (14:30)
[2023-01-02 14:47] LABS: HEMATOCRIT 29.9 % (32.4-45.2); HEMOGLOBIN 9.8 GM/dL (10.7-15.3); MCH 27.2 pg (25.7-33.7); MCHC 32.6 g/dl (32.0-36.0); MEAN CELL VOLUME 83.3 fl (80-96); MEAN PLT VOLUME 11.5 fl (7.5-11.1); PLATELET COUNT 151 10^3/uL (134-434); RBC 3.59 M/mm3 (3.60-5.2); RDW 14.5 % (11.6-15.6); WHITE BLOOD COUNT 9.9 K/mm3 (4.0-10.0)
[2023-01-02] MEDS: IBUPROFEN 800 MG/8 ML IJ IVPB PRN ×2 (15:30→23:21)
[2023-01-02] MEDS: ACETAMINOPHEN 325 MG TABLET (FP) PO PRN (17:53)
[2023-01-02] MEDS: OXYTOCIN 20 UNITS in 0.9% NS 20 UNIT/1,000 ML INFUS.BAG IV SCH (19:23)
[2023-01-02] MEDS: CEFAZOLIN SODIUM 2 GM in DEXTROSE 5%-WATER 100 ML IVPB SCH (20:39)
[2023-01-02] MEDS: SIMETHICONE 80 MG TAB.CHEW (FP) PO PRN (20:39)
[2023-01-02] MEDS: oxyCODONE HCL 5 MG TABLET PO PRN (21:01)
[2023-01-03] MEDS ORDERED: oxyCODONE HCL 5 MG TABLET PO PRN ×2 (02:21)
[2023-01-03] MEDS: SIMETHICONE 80 MG TAB.CHEW (FP) PO PRN (02:41)
[2023-01-03] MEDS: oxyCODONE HCL 5 MG TABLET PO PRN (02:42)
[2023-01-03] MEDS: CEFAZOLIN SODIUM 2 GM in DEXTROSE 5%-WATER 100 ML IVPB SCH ×2 (04:41→13:18)
[2023-01-03] MEDS: OXYTOCIN 20 UNITS in 0.9% NS 20 UNIT/1,000 ML INFUS.BAG IV SCH (04:49)
[2023-01-03] MEDS: IBUPROFEN 800 MG/8 ML IJ IVPB PRN (07:15)
[2023-01-03 08:38] LABS: BASO % 0.3 % (0-2.0); EOS % 0.1 % (0-4.5); HEMATOCRIT 24.9 % (32.4-45.2); HEMOGLOBIN 8.3 GM/dL (10.7-15.3); LYMPH % 8.2 % (8-40); MCH 27.2 pg (25.7-33.7); MCHC 33.3 g/dl (32.0-36.0); MEAN CELL VOLUME 81.6 fl (80-96); MEAN PLT VOLUME 11.4 fl (7.5-11.1); MONO % 5.7 % (3.8-10.2); NEUT % 85.7 % (42.8-82.8); PLATELET COUNT 170 10^3/uL (134-434); RBC 3.05 M/mm3 (3.60-5.2); RDW 14.3 % (11.6-15.6); WHITE BLOOD COUNT 11.8 K/mm3 (4.0-10.0)
[2023-01-03 08:52] LABS: POTASSIUM 3.7 mmol/L (3.5-5.1)
[2023-01-03 08:55] LABS: BLOOD UREA NITROGEN 4.6 mg/dL (7-18)
[2023-01-03 08:58] LABS: CREATININE 0.4 mg/dL (0.55-1.3)
[2023-01-03 09:01] LABS: BILIRUBIN,TOTAL 0.6 mg/dL (0.2-1)
[2023-01-03 09:04] LABS: ALBUMIN 1.8 g/dl (3.4-5.0)
[2023-01-03] MEDS ORDERED: FUROSEMIDE 20 MG TABLET (FP) PO ONE (10:07)
[2023-01-03] MEDS ORDERED: ALBUTEROL SO4 2.5/IPRATROPIUM 0.5 INH SOL 3 ML VIAL.NEB. NEB PRN (11:39)
[2023-01-03] MEDS: KETOROLAC TROMETHAMINE 15 MG/ML VIAL IVPUSH PRN ×2 (12:18→17:42)
[2023-01-03] MEDS: FUROSEMIDE 40 MG/4 ML INJECTABLE VIAL IVPUSH SCH (13:27)
[2023-01-03] MEDS: PRENATAL VITAMINS W/ FOLIC ACID TABLET (FP) PO SCH (13:34)
[2023-01-03] MEDS ORDERED: BISACODYL 10 MG SUPP.RECT RC PRN (14:21)
[2023-01-03] MEDS: ACETAMINOPHEN 325 MG TABLET (FP) PO PRN (15:03)
[2023-01-03] MEDS: ENOXAPARIN NA (PORCINE) 40 MG/0.4 ML DISP.SYRIN SQ SCH (16:29)
[2023-01-03 17:05] LABS: BASO % 0.2 % (0-2.0); EOS % 0.3 % (0-4.5); HEMATOCRIT 26.3 % (32.4-45.2); HEMOGLOBIN 8.7 GM/dL (10.7-15.3); LYMPH % 10.1 % (8-40); MCH 26.9 pg (25.7-33.7); MCHC 33.1 g/dl (32.0-36.0); MEAN CELL VOLUME 81.1 fl (80-96); MONO % 7.2 % (3.8-10.2); NEUT % 82.2 % (42.8-82.8); PLATELET COUNT 196 10^3/uL (134-434); RBC 3.24 M/mm3 (3.60-5.2); RDW 14.7 % (11.6-15.6); WHITE BLOOD COUNT 12.7 K/mm3 (4.0-10.0)
[2023-01-03] MEDS ORDERED: FUROSEMIDE 40 MG/4 ML INJECTABLE VIAL IVPUSH ONE (17:06)
[2023-01-03] MEDS ORDERED: FUROSEMIDE INJECTION 100 MG in SODIUM CHLORIDE 40 ML IVPB SCH (17:15)
[2023-01-03 17:19] LABS: POTASSIUM 3.7 mmol/L (3.5-5.1)
[2023-01-03 17:21] LABS: ALBUMIN 2.1 g/dl (3.4-5.0); CALCIUM 8.6 mg/dL (8.5-10.1)
[2023-01-03 17:22] LABS: BLOOD UREA NITROGEN 7.4 mg/dL (7-18)
[2023-01-03 17:24] LABS: CREATININE 0.6 mg/dL (0.55-1.3)
[2023-01-03 17:26] LABS: BILIRUBIN,TOTAL 0.4 mg/dL (0.2-1); TOT PROT 5.9 g/dl (6.4-8.2)
[2023-01-03 17:35] LABS: ACTIVATED PTT 27.5 SECONDS (25.2-36.5)
[2023-01-03 17:57] LABS: INR 1.24 (0.83-1.09); PROTHROMBIN TIME (PATIENT) 14.4 SEC (9.7-13.0)
[2023-01-03 19:02] LABS: ARTERIAL BLD GAS O2 SATURATION 98.6 % (95-98); ARTERIAL BLOOD GAS BASE EXCESS 2.7 mmol/L (-2-2); ARTERIAL BLOOD GAS PO2 122.6 mmHg (80-100); ARTERIAL BLOOD GAS pH 7.465 (7.350-7.450)
[2023-01-03 19:03] LABS: ALLENS TEST POSITIVE
[2023-01-03] MEDS: ALBUTEROL SO4 2.5/IPRATROPIUM 0.5 INH SOL 3 ML VIAL.NEB. NEB SCH ×2 (20:42→23:03)
[2023-01-03] MEDS ORDERED: ACETAMINOPHEN 1000 MG/100 ML BAG IVPB ONE (21:22)
[2023-01-03] MEDS ORDERED: CHLORHEXIDINE GLUCONATE 4% CLEANSER FOR DECOLONIZATION TP SCH (22:00)
[2023-01-03] MEDS: MUPIROCIN 2% TOPICAL OINTMENT FOR DECOLONIZATION NS SCH (22:16)
[2023-01-04] MEDS: ALBUTEROL SO4 2.5/IPRATROPIUM 0.5 INH SOL 3 ML VIAL.NEB. NEB SCH ×4 (04:53→20:12)
[2023-01-04 07:24] LABS: BASO % 0.2 % (0-2.0); EOS % 0.5 % (0-4.5); HEMATOCRIT 23.7 % (32.4-45.2); HEMOGLOBIN 8.1 GM/dL (10.7-15.3); LYMPH % 11.3 % (8-40); MCH 27.7 pg (25.7-33.7); MCHC 34.3 g/dl (32.0-36.0); MEAN CELL VOLUME 80.9 fl (80-96); MEAN PLT VOLUME 11.3 fl (7.5-11.1); MONO % 6.3 % (3.8-10.2); NEUT % 81.7 % (42.8-82.8); PLATELET COUNT 177 10^3/uL (134-434); RBC 2.93 M/mm3 (3.60-5.2); RDW 14.4 % (11.6-15.6); WHITE BLOOD COUNT 10.4 K/mm3 (4.0-10.0)
[2023-01-04 07:34] LABS: INR 1.1 (0.83-1.09); PROTHROMBIN TIME (PATIENT) 12.8 SEC (9.7-13.0)
[2023-01-04 07:37] LABS: ACTIVATED PTT 25.8 SECONDS (25.2-36.5)
[2023-01-04 07:57] LABS: POTASSIUM 3.6 mmol/L (3.5-5.1)
[2023-01-04 08:14] LABS: CALCIUM 8.3 mg/dL (8.5-10.1)
[2023-01-04 08:15] LABS: BLOOD UREA NITROGEN 7.1 mg/dL (7-18); MAGNESIUM 1.7 mg/dL (1.8-2.4)
[2023-01-04 08:17] LABS: CREATININE 0.5 mg/dL (0.55-1.3); PHOSPHOROUS 3.3 mg/dL (2.5-4.9)
[2023-01-04 08:18] LABS: BILIRUBIN,TOTAL 0.7 mg/dL (0.2-1)
[2023-01-04 08:19] LABS: TOT PROT 5.6 g/dl (6.4-8.2)
[2023-01-04] MEDS ORDERED: MAGNESIUM 1GM/D5W 100ML - 100 ML IVPB IVPB ONE (09:30)
[2023-01-04] MEDS: KETOROLAC TROMETHAMINE 15 MG/ML VIAL IVPUSH PRN (09:54)
[2023-01-04] MEDS: PRENATAL VITAMINS W/ FOLIC ACID TABLET (FP) PO SCH (09:54)
[2023-01-04] MEDS: ENOXAPARIN NA (PORCINE) 40 MG/0.4 ML DISP.SYRIN SQ SCH (09:55)
[2023-01-04] MEDS: MUPIROCIN 2% TOPICAL OINTMENT FOR DECOLONIZATION NS SCH (09:55)
[2023-01-04] MEDS: FUROSEMIDE 40 MG/4 ML INJECTABLE VIAL IVPUSH SCH (09:56)
[2023-01-04] MEDS ORDERED: ENOXAPARIN NA (PORCINE) 40 MG/0.4 ML DISP.SYRIN SQ SCH (10:00)
[2023-01-04 13:42] LABS: HEPATITIS B SURFACE AG MATERN NON-REACTIVE (NONREACTIVE)
[2023-01-04] MEDS ORDERED: CEFTRIAXONE 1 GM in DEXTROSE 5%-WATER - 50 ML IVPB SCH (13:45)
[2023-01-04] MEDS: CEFTRIAXONE 1 GM in DEXTROSE 5%-WATER - 50 ML IVPB SCH (16:43)
[2023-01-04] MEDS: OXYTOCIN 20 UNITS in 0.9% NS 20 UNIT/1,000 ML INFUS.BAG IV SCH (19:08)
[2023-01-04] MEDS: KETOROLAC TROMETHAMINE 30 MG/1 ML VIAL IVPUSH PRN (20:13)
[2023-01-05] MEDS: KETOROLAC TROMETHAMINE 30 MG/1 ML VIAL IVPUSH PRN ×2 (01:33→22:16)
[2023-01-05 07:09] LABS: BASO % 0.3 % (0-2.0); EOS % 2.1 % (0-4.5); HEMATOCRIT 24.2 % (32.4-45.2); LYMPH % 10.6 % (8-40); MCH 26.9 pg (25.7-33.7); MCHC 33.1 g/dl (32.0-36.0); MEAN CELL VOLUME 81.3 fl (80-96); MEAN PLT VOLUME 10.7 fl (7.5-11.1); MONO % 6.3 % (3.8-10.2); NEUT % 80.7 % (42.8-82.8); PLATELET COUNT 210 10^3/uL (134-434); RBC 2.97 M/mm3 (3.60-5.2); RDW 14.5 % (11.6-15.6); WHITE BLOOD COUNT 14.2 K/mm3 (4.0-10.0)
[2023-01-05 07:37] LABS: ALBUMIN 2.1 g/dl (3.4-5.0); BILIRUBIN,TOTAL 0.3 mg/dL (0.2-1); BLOOD UREA NITROGEN 10.4 mg/dL (7-18); CALCIUM 8.6 mg/dL (8.5-10.1); CREATININE 0.5 mg/dL (0.55-1.3); MAGNESIUM 1.7 mg/dL (1.8-2.4); PHOSPHOROUS 3.8 mg/dL (2.5-4.9); POTASSIUM 4.1 mmol/L (3.5-5.1); TOT PROT 5.9 g/dl (6.4-8.2)
[2023-01-05] MEDS: CEFTRIAXONE 1 GM in DEXTROSE 5%-WATER - 50 ML IVPB SCH (09:18)
[2023-01-05] MEDS: PRENATAL VITAMINS W/ FOLIC ACID TABLET (FP) PO SCH (09:19)
[2023-01-05] MEDS: ENOXAPARIN NA (PORCINE) 40 MG/0.4 ML DISP.SYRIN SQ SCH (09:19)
[2023-01-05] MEDS: ALBUTEROL SO4 2.5/IPRATROPIUM 0.5 INH SOL 3 ML VIAL.NEB. NEB SCH ×3 (15:30→20:44)
[2023-01-05] MEDS ORDERED: IBUPROFEN 600 MG TABLET (FP) PO PRN (20:33)
[2023-01-05 20:48] LABS: EPI CELLS 35 /uL (0-25.1); HYALINE CASTS 1 /uL (0-3.1); PH,URINE 6.5 (5.0-8.0); URINE APPEARANCE CLEAR; URINE BACTERIA 187 /uL (0-1359); URINE BILIRUBIN NEGATIVE (NEGATIVE); URINE COLOR YELLOW; URINE GLUCOSE (UA) NEGATIVE (NEGATIVE); URINE KETONE TRACE (NEGATIVE); URINE LEUK ESTERASE NEGATIVE (NEGATIVE); URINE NITRITE NEGATIVE (NEGATIVE); URINE PROTEIN TRACE (NEGATIVE); URINE RBC 168 /uL (0-23.9); URINE WBC 17 /uL (0-25.8)
[2023-01-06] MEDS: ALBUTEROL SO4 2.5/IPRATROPIUM 0.5 INH SOL 3 ML VIAL.NEB. NEB SCH (07:55)
[2023-01-06 10:08] VITALS: BP 134/74; PULSE 98; RESP 18; TEMP 98.2
== END 2023-01-06 09:50 | disposition home or self-care (01) | DRG 540 ==
LOC: JLDR 01-02 07:58 → J3W 01-02 16:10 → JICU 01-03 20:22 → J3W 01-04 14:30
PROVIDERS: ADMIT Obstetrics & Gynecology; ATTEND Obstetrics & Gynecology
PROC: 10D00Z1 Extraction of Products of Conception, Low, Open Approach (ICD-10-PCS; principal; 2023-01-02)
DX: O14.24 HELLP syndrome, complicating childbirth (principal); O34.219 Maternal care for unspecified type scar from previous cesarean delivery; O99.214 Obesity complicating childbirth; O75.89 Other specified complications of labor and delivery; J81.0 Acute pulmonary edema; J18.9 Pneumonia, unspecified organism; O99.53 Diseases of the respiratory system complicating the puerperium; J96.01 Acute respiratory failure with hypoxia; E87.70 Fluid overload, unspecified; O99.343 Other mental disorders complicating pregnancy, third trimester; F11.20 Opioid dependence, uncomplicated; Z3A.39 39 weeks gestation of pregnancy; Z37.0 Single live birth
CPT/HCPCS: 36415; 36600; 71045-TC-FY; 71046-TC-FY; 71275-TC; 76705-TC; 80053; 81003; 82803; 83735; 83880; 84100; 84443; 84550; 85025; 85027; 85379; 85610; 85730; 86708; 86803; 86850; 86900; 86901; 87040; 87070; 87077; 87086; 87186; 87205; 87340; 87389; 87517; 87899; 88307-TC; 93306-TC; 93970-TC; 94640; Q9967